=== PATIENT | female | born 1975 | race Caucasian/White ===

== ENCOUNTER 2016-08-04 16:14 | Emergency (ER) | payer OTHER ==
[2016-08-04] MEDS ORDERED: Zofran 4 MG/2 ML VIAL IV ONE (16:39)
[2016-08-04] MEDS ORDERED: Sodium Chloride 0.9% 1000 ML 1,000 ML IV STA (16:39)
[2016-08-04] MEDS ORDERED: NORCO 5/325 MG PO ONE (16:43)
--- NOTE | 2016-08-04 16:49 | ERPHSYRPT ---
- History of Present Illness Time Seen by Provider: 08/04/16 16:29 Source: patient Exam Limitations: no limitations Patient Subjective Stated Complaint: APPROX 0800 WHEN PT AWOKE SHE STATES SHE FELT VERY DIZZY AFTER STANDING AND STRETCHING. PT ALSO COMPLAINS OF NECK AND LEFT EAR PAIN. PT SAYS IT FEELS LIKE THE ROOM IS SPINNING THAT SHE FEELS OFF BALANCE AND NAUSEATED. Triage Nursing Assessment: PT IS AOX3, PUPILS ARE PERRL, AMBULATORY TO COT WITH NO DIFFICULTIES, RESPS ARE EASY AND NON LABORED. RADIAL PULSES ARE STRONG AND EQUAL. Physician History: Is a 41-year-old white female arrives with complaint of vertigo worse when she turns her head feels dizzy has pain in her left ear pain in her neck symptoms since 8:00 this morning when she woke up. She also states she feels nauseous. She has no chest pain no abdominal pain no vomiting no diarrhea no fevers. Patient does state that she has pain medications prescribed to her chronically but she does not take these. Past medical history includes migraines peripheral neuropathy degenerative disc disease menstrual problems depression bipolar schizoaffective disorder. Past surgical history includes appendectomy tubal ligation back surgery urine ablation Timing/Duration: today (8 AM today) Severity: mild Modifying Factors: Improves With: movement (worse with movement) Associated Symptoms: nausea, other (pain left ear pain neck posteriorly), No vomiting, No abdominal pain, No shortness of breath, No heartburn, No diaphoresis, No cough, No chills, No chest pain, No fever, No headaches, No loss of appetite, No malaise, No rash, No syncope, No seizure, No weakness Allergies/Adverse Reactions: No Known Drug Allergies Allergy (Verified 08/04/16 16:23) Home Medications: Topiramate 100 mg [Topamax 100 MG] 400 mg PO BID 03/31/13 [History] Bupropion HCl [Wellbutrin Xl] 450 mg PO DAILY 08/24/15 [History] Hydrocodone/APAP 10/325 mg [[place] 10/325 MG Tablet] 1 tab PO Q6H PRN PRN 05/02/16 [History] Clonazepam 0.5 mg [Klonopin 0.5 MG] 0.5 mg PO UD 08/04/16 [History] Oxcarbazepine 300 mg [Trileptal 300 MG Tablet] 600 mg PO DAILY 08/04/16 [ History] Hx Tetanus, Diphtheria Vaccination/Date Given: No Hx Influenza Vaccination/Date Given: Yes Hx Pneumococcal Vaccination/Date Given: No Immunizations Up to Date: Yes - Review of Systems Constitutional: No Fever, No Chills Eyes: No Symptoms, No Discharge, No Eye Pain, No Eye Redness, No Itchy, No Photophobia, No Tearing, No Vision Changes, No Double Vision Ears, Nose, & Throat: Ear Pain (left ear pain), No Ear Discharge, No Hearing Changes, No Tinnitus, No Nose Pain, No Nose Congestion, No Nose Discharge, No Sinus Drainage, No Epistaxis, No Mouth Pain, No Mouth Swelling, No Loose Teeth, No Throat Pain, No Throat Swelling, No Hoarse, No Painful Swallowing, No Snoring , No Stridor Respiratory: No Cough, No Dyspnea Cardiac: No Chest Pain, No Edema, No Syncope Abdominal/Gastrointestinal: No Abdominal Pain, No Nausea, No Vomiting, No Diarrhea Genitourinary Symptoms: No Dysuria Musculoskeletal: Neck Pain (patient states she has some pain posterior neck today), No Back Pain Skin: No Rash Neurological: Dizziness, Vertigo, No Focal Weakness, No Gait Changes, No Headache, No Irritability, No Lethargy, No Paralysis, No Parasthesia, No Seizure , No Sensory Changes, No Speech Changes, No Tics, No Tremors Psychological: No Symptoms Endocrine: No Symptoms All Other Systems: Reviewed and Negative - Past Medical History Pertinent Past Medical History: No Neurological History: Migraines, Peripheral Neuropathy ENT History: No Pertinent History Cardiac History: No Pertinent History Respiratory History: No Pertinent History Endocrine Medical History: No Pertinent History Musculoskeletal History: Degenerative Disk Disease GI Medical History: No Pertinent History History: No Pertinent History Psycho-Social History: Depression Female Reproductive Disorders: Menstrual Problems Other Medical History: HISTORY OF SURGERY ON THE LOW BACK FOR DDD; BIPOLAR, SCHIZOAFFECTIVE DISORDER, MULTIPLE PERSONALITY DISORDER - Past Surgical History Past Surgical History: Yes Neuro Surgical History: No Pertinent History Cardiac: No Pertinent History Respiratory: No Pertinent History Gastrointestinal: Appendectomy Genitourinary: No Pertinent History Musculoskeletal: Orthopedic Surgery Female Surgical History: Tubal Ligation Other Surgical History: back surgery - Social History Smoking Status: Current every day smoker How long have you smoked: 02/28 PPD Exposure to second hand smoke: Yes Drug Use: none Patient Lives Alone: No - Female History Hx Last Menstrual Period: ABLATION - Nursing Vital Signs Nursing Vital Signs: Initial Vital Signs Temperature 98.1 F Temperature Source Oral Pulse Rate 49 Respiratory Rate 16 Blood Pressure [] 118/72 Pain Intensity 4 - Physical Exam General Appearance: no apparent distress, alert, other (well-developed well- nourished white female she does not appear to be in distress) Eye Exam: PERRL/EOMI, eyes nml inspection Ears, Nose, Throat Exam: pharynx normal, moist mucous membranes, dry mucous membranes, TM abnormal (L) (left TM mildly erythematous), No TM abnormal (R) Neck Exam: normal inspection, non-tender, supple, full range of motion, other ( no demonstratable neck tenderness) Respiratory Exam: normal breath sounds, lungs clear, No respiratory distress Cardiovascular Exam: regular rate/rhythm, normal heart sounds, normal peripheral pulses Gastrointestinal/Abdomen Exam: soft, normal bowel sounds, No tenderness, No mass Back Exam: normal inspection, normal range of motion, No CVA tenderness, No vertebral tenderness Extremity Exam: normal inspection, normal range of motion, pelvis stable Neurologic Exam: alert, oriented x 3, ancient art curator II-XII nml as tested, normal mood/ affect, nml cerebellar function, nml station & gait, sensation nml, other ( patient alert, oriented 3, cranial nerves II through XII intact, speech normal no facial droop philosophy lecturer equal 5 over 5 finger to nose within normal limits GCS equals 15 sensation intact to all extremities), No motor deficits, No sensory deficit, No disoriented, No confusion, No uncooperative, No intoxicated appearance, No depressed mood/affect, No motor weakness, No facial droop, No slurred speech, No abnormal cerebellar tests, No abnormal ancient art curator II-XII Skin Exam: normal color, warm, dry, No rash SpO2 Interpretation: normal (100%) SpO2: 100 Oxygen Delivery: Room Air - Course Nursing assessment & vital signs reviewed: Yes EKG Interpreted by Me: RATE (54 bpm), Sinus Kimo, NORMAL AXIS, Other (EKG: Sinus bradycardia, 54 bpm, normal axis, no acute ST or T wave changes, essentially normal EKG) - CT Exams Head CT Interpretation: Tele-radiologist Report, Other (normal head CT) Ordered Tests: Active Orders 24 hr Category Date Time Status Accucheck STAT Care 08/04/16 16:39 Active EKG-ER Only STAT Care 08/04/16 16:39 Active IV Insertion STAT Care 08/04/16 16:39 Active Orthostatic Vital Signs STAT Care 08/04/16 16:39 Active HEAD WITHOUT CONTRAST [CT] Stat Exams 08/04/16 16:40 Taken CBC W DIFF Stat Lab 08/04/16 16:59 Completed CMP Stat Lab 08/04/16 16:59 Completed HCG QUALITATIVE,SERUM Stat Lab 08/04/16 16:59 Completed UA W/RFX UR CULTURE Stat Lab 08/04/16 16:42 Completed Medication Summary Discontinued Medications Generic Name Dose Route Start Last Admin Trade Name Wu PRN Reason Stop Dose Admin Hydrocodone Bitart/Acetaminophen 2 tab 08/04/16 16:43 08/04/16 17:24 [place] 5/325 Mg PO 08/04/16 16:44 2 tab STAT ONE Administration Hydrocodone Bitart/Acetaminophen Confirm 08/04/16 17:12 [place] 5/325 Mg Administered 08/04/16 17:13 Dose 2 tab .ROUTE .STK-MED ONE Aspirin 162 mg 08/04/16 17:55 08/04/16 18:02 Baby Aspirin 81 Mg Chew PO 08/04/16 17:56 162 mg STAT ONE Administration Aspirin Confirm 08/04/16 18:00 Baby Aspirin 81 Mg Chew Administered 08/04/16 18:01 Dose 162 mg .ROUTE .STK-MED ONE Sodium Chloride 1,000 mls @ 999 mls/hr 08/04/16 16:39 08/04/16 17:23 Sodium Chloride 0.9% 1000 Ml IV 08/04/16 17:39 999 mls/hr .Q1H1M STA Administration Sodium Chloride Confirm 08/04/16 17:12 Sodium Chloride 0.9% 1000 Ml Administered 08/04/16 17:13 Dose 1,000 mls @ ud .ROUTE .STK-MED ONE Meclizine HCl 12.5 mg 08/04/16 17:32 08/04/16 17:35 Antivert 25 Mg PO 08/04/16 17:33 12.5 mg STAT ONE Administration Meclizine HCl Confirm 08/04/16 17:35 Antivert 25 Mg Administered 08/04/16 17:36 Dose 25 mg .ROUTE .STK-MED ONE Ondansetron HCl 4 mg 08/04/16 16:39 08/04/16 17:24 Zofran 4 Mg/2 Ml Vial IV 08/04/16 16:40 4 mg STAT ONE Administration Ondansetron HCl Confirm 08/04/16 17:11 Zofran 4 Mg/2 Ml Vial Administered 08/04/16 17:12 Dose 4 mg .ROUTE .STK-MED ONE Lab/Rad Data: Laboratory Result Diagrams 08/04/16 16:59 08/04/16 16:59 Laboratory Results 08/04/16 08/04/16 08/04/16 Range/Units 16:59 16:59 16:59 WBC 4.9 (4.0-10.5) K/mm3 RBC 3.96 L (4.1-5.4) M/mm3 Hgb 12.8 (12.0-16.0) gm/dl Hct 38.5 (35-47) % MCV 97.2 (78-100) fl MCH 32.3 H (26-32) pg MCHC 33.2 (32-36) g/dl RDW 12.3 (11.5-14.0) % Plt Count 175 (150-450) K/mm3 MPV 10.9 H (6-9.5) fl Gran % 55.1 (36.0-66.0) % Lymphocytes % 35.2 (24.0-44.0) % Monocytes % 8.3 (0.0-12.0) % Eosinophils % 1.0 (0.00-5.0) % Basophils % 0.4 (0.0-0.4) % Basophils # 0.02 (0-0.4) Sodium 141 (136-145) mEq/L Potassium 3.7 (3.5-5.1) mEq/L Chloride 109 H (98-107) mEq/L Carbon Dioxide 23.1 (21-32) mEq/L Anion Gap 12.2 (5-15) MEQ/L BUN 13 (9-20) mg/dL Creatinine 1.25 (0.55-1.30) mg/dl Estimated GFR 50 ML/MIN Glucose 93 (70-110) MG/DL Calcium 8.8 (8.5-10.1) mg/dL Total Bilirubin 0.30 (0.2-1.0) mg/dL AST 7 L (15-37) U/L ALT 12 (12-78) U/L Alkaline Phosphatase 38 L (46-116) U/L Serum Total Protein 7.2 (6.4-8.2) gm/dL Albumin 3.7 (3.4-5.0) g/dL Serum , Qual NEGATIVE (Negative) Ur Collection Type Urine Color (YELLOW) Urine Appearance (CLEAR) Urine pH (5-6) Ur Specific [place] (1.005-1.025) Urine Protein (Negative) Urine Glucose (UA) (NEGATIVE) mg/dL Urine Ketones (NEGATIVE) Urine Nitrite (NEGATIVE) Urine Bilirubin (NEGATIVE) Urine Urobilinogen (0-1) mg/dL Urine WBC (Auto) (NEGATIVE) Urine RBC (Auto) (0-5) Wes/ul Specimen Received 08/04/16 Range/Units 16:42 WBC (4.0-10.5) K/mm3 RBC (4.1-5.4) M/mm3 Hgb (12.0-16.0) gm/dl Hct (35-47) % MCV (78-100) fl MCH (26-32) pg MCHC (32-36) g/dl RDW (11.5-14.0) % Plt Count (150-450) K/mm3 MPV (6-9.5) fl Gran % (36.0-66.0) % Lymphocytes % (24.0-44.0) % Monocytes % (0.0-12.0) % Eosinophils % (0.00-5.0) % Basophils % (0.0-0.4) % Basophils # (0-0.4) Sodium (136-145) mEq/L Potassium (3.5-5.1) mEq/L Chloride (98-107) mEq/L Carbon Dioxide (21-32) mEq/L Anion Gap (5-15) MEQ/L BUN (9-20) mg/dL Creatinine (0.55-1.30) mg/dl Estimated GFR ML/MIN Glucose (70-110) MG/DL Calcium (8.5-10.1) mg/dL Total Bilirubin (0.2-1.0) mg/dL AST (15-37) U/L ALT (12-78) U/L Alkaline Phosphatase (46-116) U/L Serum Total Protein (6.4-8.2) gm/dL Albumin (3.4-5.0) g/dL Serum , Qual (Negative) Ur Collection Type CLEAN CATCH Urine Color YELLOW (YELLOW) Urine Appearance CLOUDY (CLEAR) Urine pH 7.5 (5-6) Ur Specific [place] 1.020 (1.005-1.025) Urine Protein NEGATIVE (Negative) Urine Glucose (UA) NEGATIVE (NEGATIVE) mg/dL Urine Ketones NEGATIVE (NEGATIVE) Urine Nitrite NEGATIVE (NEGATIVE) Urine Bilirubin NEGATIVE (NEGATIVE) Urine Urobilinogen 0.2 (0-1) mg/dL Urine WBC (Auto) NEGATIVE (NEGATIVE) Urine RBC (Auto) NEGATIVE (0-5) Wes/ul Specimen Received 08/04/16 1730 - Progress Progress: improved Progress Note: 08/04/16 16:51 41-year-old white female she arrives with complaint of vertigo since today she states that she has some left ear pain and states that she has some posterior neck pain in the base of her neck however this is not demonstratable on physical exam and she is moving her head around when she talks without any difficulty she has a completely normal neurological examination however she does state that she feels dizzy and and does have of vertigo this is worse with movement Patient further states that she has pain in her left ear she apparently has chronic a prescription for [place] 10/325 which she states she doesn't take and she has not taken this. I Will go ahead and worked patient up for her dizziness including head CT EKG CBC CMP, orthostatic vital signs will give patient IV normal saline. I had offered patient Toradol for pain she states she does not want that she states she prefer something mild so I will go ahead and give the patient [place] for her pain. 08/04/16 17:50 Patient given IV normal saline also given [place]. Will give patient aspirin [address] EKG CBC CMP UA are all normal. Neurologic examination is normal. Will plan to send patient home diagnosis vertigo, left otitis media. Will place patient on Antivert 12.5 mg orally every 6 hours as needed for vertigo,. Will place patient on Zithromax Z-Logan as directed, Patient to take aspirin 162 mg orally tomorrow Patient to follow-up with her family doctor on Saturday she is to call for an appointment - Departure Time of Disposition: 17:51 Departure Disposition: Home Clinical Impression: Vertigo, Dizziness Left otitis media Qualifiers: Otitis media type: unspecified Chronicity: unspecified Qualified Code(s): H66.92 - Otitis media, unspecified, left ear Condition: Fair Critical Care Time: No Referrals: VENANCIO KEBEDE MD [Primary Care Provider] - Instructions: Vertigo Additional Instructions: Return home. Plenty of fluids. Antivert 12.5 mg orally every 6 hours as needed for dizziness. Aspirin 162 mg orally tomorrow. Zithromax JENNIE as directed. Follow-up with Dr. Kebede call Saturday for an appointment. Return for acute distress or for severe symptoms. Prescriptions: Meclizine HCl 25 mg [Antivert 25 mg] 12.5 mg PO Q6H PRN PRN #20 tablet PRN Reason: vertigo Azithromycin 250 mg [Zithromax 250 MG TABLET] 0 mg PO ZPACK #6 tablet
[2016-08-04 17:05] LABS: BASOPHIL % 0.4 % (0.0-0.4); Granulocytes % 55.1 % (36.0-66.0); Lymphocytes % 35.2 % (24.0-44.0); Mean Cell Volume 97.2 fl (78-100); Mean Corpuscular Hemoglobin 32.3 pg (26-32); Mean Platelet Volume 10.9 fl (6-9.5); Monocytes % 8.3 % (0.0-12.0); Platelet Count 175 K/mm3 (150-450); Red Blood Count 3.96 M/mm3 (4.1-5.4); Red Cell Distribution Width 12.3 % (11.5-14.0); White Blood Count 4.9 K/mm3 (4.0-10.5)
[2016-08-04] MEDS ORDERED: Zofran 4 MG/2 ML VIAL ONE (17:11)
[2016-08-04] MEDS ORDERED: Sodium Chloride 0.9% 1000 ML 1,000 ML ONE (17:12)
[2016-08-04] MEDS ORDERED: NORCO 5/325 MG ONE (17:12)
[2016-08-04 17:24] LABS: ALBUMIN 3.7 g/dL (3.4-5.0); ANION GAP 12.2 MEQ/L (5-15); BILIRUBIN,TOTAL 0.3 mg/dL (0.2-1.0); Carbon Dioxide 23.1 mEq/L (21-32); Potassium 3.7 mEq/L (3.5-5.1); Total Protein 7.2 gm/dL (6.4-8.2)
[2016-08-04] MEDS ORDERED: ANTIVERT 25 MG PO ONE (17:32)
[2016-08-04] MEDS ORDERED: ANTIVERT 25 MG ONE (17:35)
[2016-08-04 17:41] LABS: ADD URINE CULTURE? NO (NO); COMPLETE URINE MICROSCOPIC? NO; Collection Type CLEAN CATCH; Ph 7.5 (5-6)
[2016-08-04 17:51] VITALS: O2SAT 100
[2016-08-04] MEDS ORDERED: BABY ASPIRIN 81 MG CHEW PO ONE (17:55)
[2016-08-04] MEDS ORDERED: BABY ASPIRIN 81 MG CHEW ONE (18:00)
[2016-08-04 18:40] VITALS: BP 118/72; PULSE 49
--- NOTE | 2016-08-04 23:02 | XRAY ---
Indication: Sudden onset dizziness. No known injury. Frequent migraines. Multiple contiguous axial images obtained through the head without contrast. Comparison: None Normal appearing brain parenchyma, ventricles, and bony calvarium. Visualized paranasal sinuses and mastoid air cells are clear. Impression: Normal CT head without contrast exam. Comment: Preliminary interpretation was made by [facility]. No discrepancy. CTDI 70.00
== END 2016-08-04 18:52 | disposition home or self-care (01) ==
LOC: ED 16:14
DX: H66.92 Otitis media, unspecified, left ear (principal)
CPT/HCPCS: 36000; 36415; 70450; 80053; 81002; 82962; 84703; 85025; 93005; 96360; 96374; 99284; J2405; A9270-GY

== ENCOUNTER 2019-07-24 18:40 | Emergency (ER) | payer OTHER ==
[2019-07-24] MEDS ORDERED: TORAdol 30 mg Injection IM ONE (19:02)
[2019-07-24] MEDS ORDERED: TORAdol 30 mg Injection ONE (19:06)
--- NOTE | 2019-07-24 19:08 | ERPHSYRPT ---
- History of Present Illness Time Seen by Provider: 07/24/19 18:51 Source: patient Exam Limitations: no limitations Patient Subjective Stated Complaint: Right ankle pain Triage Nursing Assessment: Patient brought back to ED via w/c and transferred self to bed. Patient A+O X3. Patient's skin pink, warm and dry. Patient states she was stepping down her porch and missed the last step. Patient complains of right ankle pain 7/10 when bearing weight intermittent sharp pain. Swelling noted to right ankle. Pulses noted. Physician History: 44 yo wf rolled R ankle while stepping off curb. Pt denies other/previous injury. Pain 7 on scale when weight bearing. Method of Injury: twisted Occurred: hours ago (2) Quality: intermittent Severity of Pain-Max: moderate Severity of Pain-Current: mild Lower Extremities Pain: ankle: right Modifying Factors: Improves With: movement Associated Symptoms: popping sensation Allergies/Adverse Reactions: No Known Drug Allergies Allergy (Verified 07/24/19 18:48) Home Medications: Topiramate 100 mg [Topamax 100 MG] 400 mg PO BID 03/31/13 [History] Hx Tetanus, Diphtheria Vaccination/Date Given: No Hx Influenza Vaccination/Date Given: Yes Hx Pneumococcal Vaccination/Date Given: No Immunizations Up to Date: Yes Travel Risk - International Travel Have you traveled outside of the country in past 3 weeks: No Have you or anyone close to you been diagnosed with or: No Do your reside in a community with a known COVID-19 case?: Yes If Yes where:: [facility] - Coronavirus Screening Has patient experienced Coronavirus symptoms: No - Review of Systems Constitutional: No Symptoms Eyes: No Symptoms Ears, Nose, & Throat: No Symptoms Respiratory: No Symptoms Cardiac: No Symptoms Abdominal/Gastrointestinal: No Symptoms Genitourinary Symptoms: No Symptoms Skin: No Symptoms Neurological: No Symptoms Psychological: No Symptoms Endocrine: No Symptoms Hematologic/Lymphatic: No Symptoms Immunological/Allergic: No Symptoms - Past Medical History Pertinent Past Medical History: Yes Neurological History: Migraines, Peripheral Neuropathy ENT History: No Pertinent History Cardiac History: No Pertinent History Respiratory History: No Pertinent History Endocrine Medical History: No Pertinent History Musculoskeletal History: Degenerative Disk Disease GI Medical History: No Pertinent History History: No Pertinent History Psycho-Social History: Depression Female Reproductive Disorders: Menstrual Problems Other Medical History: HISTORY OF SURGERY ON THE LOW BACK FOR DDD; BIPOLAR, SCHIZOAFFECTIVE DISORDER, MULTIPLE PERSONALITY DISORDER - Past Surgical History Past Surgical History: Yes Neuro Surgical History: No Pertinent History Cardiac: No Pertinent History Respiratory: No Pertinent History Gastrointestinal: Appendectomy Genitourinary: No Pertinent History Musculoskeletal: Orthopedic Surgery Female Surgical History: Tubal Ligation Other Surgical History: back surgery - Social History Smoking Status: Current every day smoker How long have you smoked: 1/4 PPD Exposure to second hand smoke: Yes Drug Use: none Patient Lives Alone: No - Female History Hx Last Menstrual Period: 3 weeks ago Hx Now: No - Nursing Vital Signs Nursing Vital Signs: Initial Vital Signs Temperature 98.4 F 07/24/19 18:52 Pulse Rate 55 L 07/24/19 18:52 Respiratory Rate 18 07/24/19 18:52 Blood Pressure 142/92 07/24/19 18:52 O2 Sat by Pulse Oximetry 100 07/24/19 18:52 Pain Scale Pain Intensity 8 - Physical Exam General Appearance: no apparent distress Eyes, Ears, Nose, Throat Exam: normal ENT inspection, TMs normal, pharynx normal Neck Exam: normal inspection, non-tender, supple, full range of motion Cardiovascular/Respiratory Exam: normal breath sounds, regular rate/rhythm, heart sounds normal Gastrointestinal/Abdominal Exam: non-tender, soft Back Exam: normal inspection Hips Exam: bilateral: non-tender, normal inspection Legs Exam: bilateral leg: non-tender, normal inspection Knees Exam: bilateral knee: non-tender, normal inspection Ankle Exam: right ankle: limited range of motion, pain, soft tissue tenderness, swelling Foot Exam: bilateral foot: non-tender, normal inspection, normal range of motion , no evidence of injury Neuro/Tendon Exam: normal sensation, normal motor functions, normal tendon functions, responds to pain Mental Status Exam: alert, oriented x 3, cooperative Skin Exam: normal color, warm, dry SpO2 Interpretation: normal SpO2: 100 O2 Delivery: Room Air - Course Nursing assessment & vital signs reviewed: Yes - Radiology Exams Ankle X-ray Interpretation: Interpreted by me, No Fracture Ordered Tests: Active Orders 24 hr Category Date Time Status Crutches STAT Care 07/24/19 19:32 Active Splint STAT Care 07/24/19 19:27 Active ANKLE (3 VIEWS) Stat Exams 07/24/19 19:21 Taken Medication Summary Discontinued Medications Generic Name Dose Route Start Last Admin Trade Name Freq PRN Reason Stop Dose Admin Ketorolac Tromethamine 60 mg 07/24/19 19:02 07/24/19 19:09 Toradol 30 Mg Injection IM 07/24/19 19:03 60 mg STAT ONE Administration Ketorolac Tromethamine Confirm 07/24/19 19:06 Toradol 30 Mg Injection Administered 07/24/19 19:07 Dose 60 mg .ROUTE .STK-MED ONE - Progress Progress: improved Progress Note: 07/24/19 19:29 60mg IM toradol/Air splint per nurse/NVI 07/24/19 19:33 Pt initially turned down crutches, but later asked for them. Crutch training per nurse. Counseled pt/family regarding: diagnosis, rad results - Departure Departure Disposition: Home Clinical Impression: Right ankle sprain Condition: Stable Critical Care Time: No Referrals: VENANCIO KEBEDE MD [Primary Care Provider] - Additional Instructions: Air Splint for 5-7 days Ice for 12-24 hours Toradol as needed for pain Follow up with your family MD for continued pain Weight bearing as tolerated Prescriptions: Ketorolac Tromethamine [Toradol] 10 mg PO Q8HPRN PRN #10 tablet PRN Reason: Pain
[2019-07-24 19:45] VITALS: O2SAT 99
[2019-07-24 19:55] VITALS: BP 121/65; PULSE 60
--- NOTE | 2019-07-24 23:04 | XRAY ---
Indication: Lateral pain following injury. Comparison: None 3 view right ankle demonstrates tiny heel spurs and small anterior talus spur. No other bony, articular, or soft tissue abnormalities.
== END 2019-07-24 20:03 | disposition home or self-care (01) ==
LOC: ED 18:40
DX: S93.401A Sprain of unspecified ligament of right ankle, initial encounter (principal); M51.36 Other intervertebral disc degeneration, lumbar region; F25.0 Schizoaffective disorder, bipolar type; Z72.0 Tobacco use; G62.9 Polyneuropathy, unspecified; M25.571 Pain in right ankle and joints of right foot; X50.1XXA Overexertion from prolonged static or awkward postures, initial encounter; Y93.89 Activity, other specified; Y92.9 Unspecified place or not applicable
CPT/HCPCS: 73610; 96372; 99284; J1885

== ENCOUNTER 2020-05-03 07:18 | Inpatient (IN) | payer OTHER ==
[2020-05-03] MEDS ORDERED: CEFAZOLIN 2 GM-D5W BAG** 2 GM/50 ML ML IV ONE (07:29)
[2020-05-03] MEDS ORDERED: Lactated Ringers 1,000 ML IV ONE ×2 (07:29→07:41)
[2020-05-03] MEDS ORDERED: CEFAZOLIN 2 GM-D5W BAG** 2 GM/50 ML ML IV SCH (07:30)
[2020-05-03] MEDS ORDERED: Lactated Ringers 1,000 ML IV SCH (07:30)
[2020-05-03 08:12] LABS: Hematocrit 40.8 % (35-47); Hemoglobin 13.2 gm/dl (12.0-16.0); Mean Cell Volume 97.8 fl (78-100); Mean Corpuscular Hemoglobin 31.7 pg (26-32); Mean Corpuscular Hgb Concent. 32.4 g/dl (32-36); Mean Platelet Volume 11.2 fl (7.5-11.0); Platelet Count 178 K/mm3 (150-450); Red Blood Count 4.17 M/mm3 (4.1-5.4); Red Cell Distribution Width 12.6 % (11.5-14.0); White Blood Count 4.8 K/mm3 (4.0-10.5)
[2020-05-03 08:31] LABS: ALKALINE PHOSPHATASE 46 U/L (38-126); ANION GAP 11.3 MEQ/L (5-15); BLOOD UREA NITROGEN 10 mg/dL (7-17); CHLORIDE 106 mmol/L (98-107); Calcium 8.9 mg/dL (8.4-10.2); Carbon Dioxide 24 mmol/L (22-30); Creatinine 1 0.88 mg/dL (0.52-1.04); EST GLOMERULAR FILTRATION RATE > 60.0 ML/MIN; Glucose 107 mg/dL (74-106); Potassium 3.7 mmol/L (3.5-5.1); SGOT/AST 18 U/L (14-36); SGPT/ALT 15 U/L (0-35); SODIUM 137 mmol/L (137-145); Total Protein 6.9 g/dL (6.3-8.2)
[2020-05-03 08:46] LABS: INFLUENZA A NEGATIVE (NEGATIVE); INFLUENZA B NEGATIVE (NEGATIVE); RESPIRATORY SYNCTIAL VIRUS NEGATIVE (Negative)
[2020-05-03 09:02] LABS: ABO TYPING B; Antibody Screen NEGATIVE (NEGATIVE); RH TYPING NEGATIVE
[2020-05-03] MEDS ORDERED: Zofran 4 MG/2 ML VIAL ONE (09:51)
[2020-05-03] MEDS ORDERED: TORAdol 30 mg Injection ONE (09:51)
[2020-05-03] MEDS ORDERED: BRIDION 200MG/2ML IV ONE (09:51)
[2020-05-03] MEDS ORDERED: Zemuron 100 MG/10 ML ONE (09:51)
[2020-05-03] MEDS ORDERED: Decadron 4 MG INJ ONE ×2 (09:51→12:02)
[2020-05-03] MEDS ORDERED: Xylocaine-Mpf 2% 5 Ml Vial ONE (09:51)
[2020-05-03] MEDS ORDERED: DIPRIVAN 200 MG/20 ML IV ONE (09:51)
[2020-05-03] MEDS ORDERED: SUBLIMAZE 250 MCG/5 ML ONE (09:52)
[2020-05-03] MEDS ORDERED: Versed 2 MG/2 ML Injection ONE (09:52)
[2020-05-03] MEDS ORDERED: Ketamine HCl 50 MG/ML ONE (11:01)
[2020-05-03] MEDS ORDERED: Naropin 0.5% 30 ML VIAL ONE (12:02)
[2020-05-03] MEDS ORDERED: Hydromorphone 1 mg/ml Injection ONE (12:45)
[2020-05-03 12:56] LABS: Appearance SLIGHTLY CLOUDY (CLEAR); Bilirubin NEGATIVE (NEGATIVE); Blood SMALL Ery/ul (0-5); Epithelial Cells RARE /HPF (FEW); Glucose NEGATIVE (NEGATIVE); Ketones SMALL (NEGATIVE); Leukocyte Esterase SMALL (NEGATIVE); Mucus SLIGHT /HPF (NEGATIVE); Nitrite NEGATIVE (NEGATIVE); Protein,Urine Dip NEGATIVE (Negative); Specific Gravity 1.013 (1.005-1.025); Urobilinogen NEGATIVE mg/dL (0-1); WBC 0-2 /HPF (0-5)
[2020-05-03] MEDS ORDERED: MORPHINE SULFATE 10 MG/ML ONE (12:57)
[2020-05-03] MEDS ORDERED: SUBLIMAZE 100 MCG/2 ML ONE (12:57)
[2020-05-03 12:59] LABS: Bacteria NONE SEEN /HPF (NEGATIVE)
[2020-05-03] MEDS ORDERED: DILAUDID 1 MG/1ML PCA IV PRN (14:08)
[2020-05-03] MEDS ORDERED: Zofran 4 MG/2 ML VIAL IV PRN (14:14)
[2020-05-03] MEDS ORDERED: TORAdol 30 mg Injection IV PRN (14:18)
[2020-05-03] MEDS: CEFAZOLIN 2 GM-D5W BAG** 2 GM/50 ML ML IV SCH ×2 (15:16→22:02)
[2020-05-03] MEDS: Mylicon 80MG PO SCH ×2 (15:16→22:03)
[2020-05-03] MEDS: Reglan 10 MG/2 ML IV SCH ×2 (15:16→22:04)
[2020-05-03 18:22] LABS: Hematocrit 38.1 % (35-47); Hemoglobin 12.1 gm/dl (12.0-16.0); Mean Corpuscular Hemoglobin 31.4 pg (26-32); Mean Corpuscular Hgb Concent. 31.8 g/dl (32-36); Mean Platelet Volume 11.2 fl (7.5-11.0); Platelet Count 164 K/mm3 (150-450); Red Blood Count 3.85 M/mm3 (4.1-5.4); Red Cell Distribution Width 12.7 % (11.5-14.0); White Blood Count 12.1 K/mm3 (4.0-10.5)
[2020-05-03] MEDS: Lactated Ringers 1,000 ML IV SCH (20:51)
[2020-05-03] MEDS ORDERED: TOPIRAMATE PO SCH (22:00)
[2020-05-03] MEDS: Colace 100 MG PO SCH (22:03)
[2020-05-03] MEDS: TOPIRAMATE PO SCH (22:08)
[2020-05-04 05:07] LABS: Hematocrit 34.5 % (35-47); Hemoglobin 10.9 gm/dl (12.0-16.0); Mean Cell Volume 98.6 fl (78-100); Mean Corpuscular Hemoglobin 31.1 pg (26-32); Mean Corpuscular Hgb Concent. 31.6 g/dl (32-36); Mean Platelet Volume 11.3 fl (7.5-11.0); Platelet Count 156 K/mm3 (150-450); Red Cell Distribution Width 12.6 % (11.5-14.0)
[2020-05-04] MEDS: Lactated Ringers 1,000 ML IV SCH (05:17)
[2020-05-04 05:38] LABS: ALBUMIN 3.3 g/dL (3.5-5.0); ALKALINE PHOSPHATASE 38 U/L (38-126); ANION GAP 9.2 MEQ/L (5-15); BLOOD UREA NITROGEN 6 mg/dL (7-17); CHLORIDE 106 mmol/L (98-107); Calcium 8.7 mg/dL (8.4-10.2); Carbon Dioxide 22 mmol/L (22-30); Creatinine 1 0.74 mg/dL (0.52-1.04); EST GLOMERULAR FILTRATION RATE > 60.0 ML/MIN; Glucose 140 mg/dL (74-106); Potassium 3.9 mmol/L (3.5-5.1); SGOT/AST 17 U/L (14-36); SGPT/ALT 14 U/L (0-35); SODIUM 134 mmol/L (137-145)
[2020-05-04] MEDS: Mylicon 80MG PO SCH (06:26)
[2020-05-04] MEDS: Reglan 10 MG/2 ML IV SCH (06:26)
[2020-05-04] MEDS ORDERED: ENOXAPARIN SODIUM SQ SCH (08:00)
[2020-05-04] MEDS ORDERED: MOTRIN 600 MG PO PRN (08:07)
[2020-05-04] MEDS: Colace 100 MG PO SCH (09:12)
[2020-05-04] MEDS: NORCO 5/325 MG PO PRN ×2 (09:14→13:14)
[2020-05-04] MEDS: TOPIRAMATE PO SCH (09:54)
--- NOTE | 2020-05-04 10:08 | OP ---
SURGERY DATE/TIME: 05/03/2020 1052 PREOPERATIVE DIAGNOSES: 1) Abnormal uterine bleeding. 2) Severe cervical dysplasia. POSTOPERATIVE DIAGNOSES: 1) Abnormal uterine bleeding. 2) Severe cervical dysplasia. PROCEDURES: 1) Total abdominal hysterectomy. 2) Bilateral salpingectomy. SURGEON: Edgardo Morton D.O. BAIT PAINTER: Brianna Lopez, surgical services manager. ANESTHESIA: General. ESTIMATED BLOOD LOSS: 200 cc. COMPLICATIONS: None. INDICATIONS: The risks, benefits, indications and alternatives of the procedure were reviewed with the patient prior to the procedure. The patient understood the risk of infection, bleeding, bowel injury, bladder injury, ureteral injury, incisional hernia, pelvic infection and thromboembolic disorder associated with the surgery however desires to have the surgery as a possible means to alleviate her current medical condition. DESCRIPTION OF PROCEDURE AND FINDINGS: At this point the patient is taken to the operating room, placed in supine position, given general sedation, prepared and draped in the normal sterile fashion. A Pfannenstiel incision was made approximately 2 cm above the symphysis pubis and extended sharply through the rectus fascia. The fascia was then incised bilaterally with curved Naidu scissors and the muscles of the anterior abdominal wall were in the midline by sharp and blunt dissection. The peritoneum was then grasped between two pickups elevated and entered sharply with Metzenbaum scissors. The pelvis is then examined and noted to have an 8 weeks size uterus. An O'Beltran-O'Girard retractor was placed into the incision and the bowel packed away with moist laparotomy sponges. Two Radha clamps were placed on the cornua and used for retraction. From this point the left utero-ovarian ligament was clamped, coagulated, cut and taken down to the round ligament towards the uterine vessel on its side where the anterior lip of the broad ligament was then incised along the bladder reflection to the midline. The same procedure was performed on the right side where the right utero-ovarian ligament was clamped, coagulated and cut and taken down to the round ligament towards the uterine vasculature where the anterior lip of the broad ligament was incised along the bladder reflection to the midline on its side. The bladder was then gently dissected off of the lower uterine segment from the cervix with a sponge stick. From this point the uterine arteries were skeletonized bilaterally, clamped with Luis clamp, transected and suture ligated with 0 Vicryl suture. Again, hemostasis was assured. The utero-sacral ligaments were clamped on both sides, transected and suture ligated in similar fashion. From this point the uterus was then amputated with cautery. The vaginal cuff angles were closed with a figure-of-8 stitch of 0 Vicryl and were transfixed to the ipsilateral Cardinal and uterosacral ligaments. The remainder of the vaginal cuff was closed with a series of interrupted 0 Vicryl figure-of-8 sutures. Hemostasis was assured. From this point the pelvis was then irrigated copiously with warm, normal saline. All lap, sponge and instruments were then removed from the patient's abdomen. The muscles were closed in interrupted fashion with 2-0 chromic suture. The fascia was closed with running 0 Vicryl suture. The subcutaneous layer was closed with 3-0 Vicryl suture and the skin was closed with absorbable eliecer called INSORB. Prior to closing, the bilateral tubes were removed using the LigaSure where it was clamped, coagulated and cut along the mesosalpinx on both sides. Sponge, lap and instruments counts were correct x2. The patient was then taken to the recovery room in stable condition. Both ovaries appeared to be within normal limits and were not removed during the procedure.
[2020-05-04 12:15] VITALS: BP 115/64; PULSE 55; O2SAT 99
--- NOTE | 2020-05-04 12:59 | PCM.DS ---
Discharge Summary Date of Admission: 05/03/20 07:18 Admitting Physician: RACHEL WALKER DO Primary Care Provider: VENANCIO KEBEDE Allergies Allergies No Known Drug Allergies Allergy (Verified 05/03/20 08:39) Hospital Summary - Hospital Course Hospital Course: pt admitted on may 03 for undergoing total abdominal hysterectomy b/l salpingectomy for abnormal uterine bleeding and high grade dysplasia. pt underwent procedure without complication and now stable for discharge. pt able to ambulate and tolerate diet and was advised to fu in office in 1 wk for incision check. all questions answered to her satisfaction. - Vitals & Intake/Output Vital Signs: Vital Signs Temperature 98.1 F 05/04/20 12:00 Pulse Rate 55 L 05/04/20 12:00 Respiratory Rate 18 05/04/20 12:00 Blood Pressure 115/64 05/04/20 12:00 O2 Sat by Pulse Oximetry 99 05/04/20 12:00 Intake & Output: Intake & Output 05/02/20 05/03/20 05/04/20 05/05/20 11:59 11:59 11:59 11:59 Intake Total 3259 Output Total 2400 Balance 859 Weight 93.6 kg 96 kg - Lab Result Diagrams: 05/04/20 04:52 05/04/20 04:52 Lab Results-Last 24 Hrs: Lab Results-Last 24 Hours 05/03/20 05/03/20 05/04/20 Range/Units 12:36 18:15 04:52 WBC 12.1 H 12.0 H (4.0-10.5) K/mm3 RBC 3.85 L 3.50 L (4.1-5.4) M/mm3 Hgb 12.1 10.9 L (12.0-16.0) gm/dl Hct 38.1 34.5 L (35-47) % MCV 99.0 98.6 (78-100) fl MCH 31.4 31.1 (26-32) pg MCHC 31.8 L 31.6 L (32-36) g/dl RDW 12.7 12.6 (11.5-14.0) % Plt Count 164 156 (150-450) K/mm3 MPV 11.2 H 11.3 H (7.5-11.0) fl Sodium (137-145) mmol/L Potassium (3.5-5.1) mmol/L Chloride (98-107) mmol/L Carbon Dioxide (22-30) mmol/L Anion Gap (5-15) MEQ/L BUN (7-17) mg/dL Creatinine (0.52-1.04) mg/dL Estimated GFR ML/MIN Glucose (74-106) mg/dL Calcium (8.4-10.2) mg/dL Total Bilirubin (0.2-1.3) mg/dL AST (14-36) U/L ALT (0-35) U/L Alkaline Phosphatase (38-126) U/L Serum Total Protein (6.3-8.2) g/dL Albumin (3.5-5.0) g/dL Urine Color YELLOW (YELLOW) Urine Appearance SLIGHTLY CLOUDY (CLEAR) Urine pH 7.0 (5-6) Ur Specific [place] 1.013 (1.005-1.025) Urine Protein NEGATIVE (Negative) Urine Ketones SMALL (NEGATIVE) Urine Blood SMALL (0-5) Wes/ul Urine Nitrite NEGATIVE (NEGATIVE) Urine Bilirubin NEGATIVE (NEGATIVE) Urine Urobilinogen NEGATIVE (0-1) mg/dL Ur Leukocyte Esterase SMALL (NEGATIVE) Urine WBC (Auto) 0-2 (0-5) /HPF Urine RBC (Auto) NONE (0-2) /HPF U Epithel Cells (Auto) RARE (FEW) /HPF Urine Bacteria (Auto) NONE SEEN (NEGATIVE) /HPF Urine Mucus (Auto) SLIGHT (NEGATIVE) /HPF Urine Glucose NEGATIVE (NEGATIVE) mg/dL 05/04/20 Range/Units 04:52 WBC (4.0-10.5) K/mm3 RBC (4.1-5.4) M/mm3 Hgb (12.0-16.0) gm/dl Hct (35-47) % MCV (78-100) fl MCH (26-32) pg MCHC (32-36) g/dl RDW (11.5-14.0) % Plt Count (150-450) K/mm3 MPV (7.5-11.0) fl Sodium 134 L (137-145) mmol/L Potassium 3.9 (3.5-5.1) mmol/L Chloride 106 (98-107) mmol/L Carbon Dioxide 22 (22-30) mmol/L Anion Gap 9.2 (5-15) MEQ/L BUN 6 L (7-17) mg/dL Creatinine 0.74 (0.52-1.04) mg/dL Estimated GFR > 60.0 ML/MIN Glucose 140 H (74-106) mg/dL Calcium 8.7 (8.4-10.2) mg/dL Total Bilirubin 0.60 (0.2-1.3) mg/dL AST 17 (14-36) U/L ALT 14 (0-35) U/L Alkaline Phosphatase 38 (38-126) U/L Serum Total Protein 6.0 L (6.3-8.2) g/dL Albumin 3.3 L (3.5-5.0) g/dL Urine Color (YELLOW) Urine Appearance (CLEAR) Urine pH (5-6) Ur Specific [place] (1.005-1.025) Urine Protein (Negative) Urine Ketones (NEGATIVE) Urine Blood (0-5) Wes/ul Urine Nitrite (NEGATIVE) Urine Bilirubin (NEGATIVE) Urine Urobilinogen (0-1) mg/dL Ur Leukocyte Esterase (NEGATIVE) Urine WBC (Auto) (0-5) /HPF Urine RBC (Auto) (0-2) /HPF U Epithel Cells (Auto) (FEW) /HPF Urine Bacteria (Auto) (NEGATIVE) /HPF Urine Mucus (Auto) (NEGATIVE) /HPF Urine Glucose (NEGATIVE) mg/dL - Procedures and Test Procedures and Tests throughout Hospitalization: Therapy Orders & Screens 05/03/20 13:43 Incentive Spirometry UD Comment: Diagnosis: Severe Cervical Dysplasia. Abnormal uterine bleeding Discharge Exam Wound Assessment: Skin/Wound Assessment Wound/Incision Assessment Start: 05/03/20 14:13 Text: Status: Active Freq: Q6H Protocol: Document 05/04/20 08:00 JERED (Rec: 05/04/20 08:45 JERED TN [id number]) Wound/Incision Assessment Lower Anterior Abdomen Wound Assessment Shift Assessment Wound Type Incision Wound Stage Non Pressure Wound Dressing Status Changed Drainage Amount Minimal Drainage Description Sanguineous Drainage Odor None/Absent General Appearance Well Approximated Primary Dressing ISLAND DRESSING Wound Photo Photo Taken No - Discharge Discharge Date: 05/04/20 Disposition: Home, Self-Care Condition: Stable Prescriptions: New Hydrocodone/Acetaminophen [Hydrocodone-Acetamin 5-325 mg ] 1 tab PO Q6HPRN PRN 5 Days #20 tablet MDD 4 PRN Reason: Pain Doxycycline Hyclate 100 mg [Vibramycin 100 MG] 100 mg PO BID #6 tab Continue Topiramate 100 mg [Topamax 100 MG] 200 mg PO BID Follow up with: RACHEL WALKER DO [ACTIVE STAFF] - 05/11/20 3:15 pm Forms: Patient Portal Information
== END 2020-05-04 14:45 | disposition home or self-care (01) | DRG 743 ==
LOC: MED SURG 07:18 → EDSTATUS 13:04
PROVIDERS: ADMIT Obstetrics & Gynecology; ATTEND Obstetrics & Gynecology
PROC: 0UT90ZZ Resection of Uterus, Open Approach (ICD-10-PCS; principal; 2020-05-03)
PROC: 0UT70ZZ Resection of Bilateral Fallopian Tubes, Open Approach (ICD-10-PCS; 2020-05-03)
DX: N93.9 Abnormal uterine and vaginal bleeding, unspecified (principal); D06.9 Carcinoma in situ of cervix, unspecified
CPT/HCPCS: 0241U; 36415; 64488; 80053; 81001; 84703; 85027; 86850; 86900; 86901; 87086; J0690; J1100; J1170; J1650; J1885; J2250; J2270; J2405; J2704; J2795; J3010; A9270-GY

== ENCOUNTER 2020-06-02 08:40 | Emergency (ER) | payer OTHER ==
[2020-06-02 08:51] VITALS: O2SAT 99
[2020-06-02] MEDS ORDERED: DECADRON 10MG INJ. PO ONE (08:51)
[2020-06-02] MEDS ORDERED: TORAdol 30 mg Injection IM ONE (08:52)
--- NOTE | 2020-06-02 09:00 | ERPHSYRPT ---
- History of Present Illness Time Seen by Provider: 06/02/20 08:55 Source: patient Patient Subjective Stated Complaint: pt here for pain to left side of neck and in to shoulder for 2 days after working in yard 3 days ago Triage Nursing Assessment: pt alert, walked in, face mask in place, resp easy, skin w/d/p, no abrasions or swelling noted Physician History: Patient is a 45-year-old female presents to our ED with complaints of left upper trapezius pain. Pain started yesterday. Patient relates the pain to gardening 2 days ago. Patient states the pain started yesterday however was tolerable. This morning she awoke and the pain was much worse. Pain described as an ache that is well localized. No radiation. Pain worse with palpation and movement of her left upper extremity. Pain improved with rest. No trauma. No fever. No extremity numbness tingling or weakness. Symptoms are mild to moderate in intensity. No associated nausea or vomiting. No dizziness. No headache. Patient voices no other complaints or concerns at this time. Timing/Duration: day(s) Severity: moderate Modifying Factors: Improves With: movement Associated Symptoms: denies symptoms Allergies/Adverse Reactions: No Known Drug Allergies Allergy (Verified 05/03/20 08:39) Home Medications: Topiramate 100 mg [Topamax 100 MG] 200 mg PO BID 03/31/13 [History] Hx Tetanus, Diphtheria Vaccination/Date Given: No Hx Influenza Vaccination/Date Given: Yes Hx Pneumococcal Vaccination/Date Given: No Travel Risk - International Travel Have you traveled outside of the country in past 3 weeks: No - Coronavirus Screening Are you exhibiting any of the following symptoms?: No Close contact with a COVID-19 positive Pt in past 14-21 Days: No - Vaccine Status Have you recieved a Covid-19 vaccination: No - Review of Systems Constitutional: No Symptoms, No Fever, No Chills Eyes: No Symptoms Ears, Nose, & Throat: No Symptoms Respiratory: No Symptoms, No Cough, No Dyspnea Cardiac: No Symptoms, No Chest Pain, No Edema, No Syncope Abdominal/Gastrointestinal: No Symptoms, No Abdominal Pain, No Nausea, No Vomiting, No Diarrhea Genitourinary Symptoms: No Symptoms, No Dysuria Musculoskeletal: No Symptoms, No Back Pain, No Neck Pain Skin: No Symptoms, No Rash Neurological: No Symptoms, No Dizziness, No Focal Weakness, No Sensory Changes Psychological: No Symptoms Endocrine: No Symptoms Hematologic/Lymphatic: No Symptoms Immunological/Allergic: No Symptoms All Other Systems: Reviewed and Negative - Past Medical History Pertinent Past Medical History: Yes Neurological History: Migraines, Peripheral Neuropathy ENT History: No Pertinent History Cardiac History: No Pertinent History Respiratory History: No Pertinent History Endocrine Medical History: No Pertinent History Musculoskeletal History: Degenerative Disk Disease GI Medical History: No Pertinent History History: No Pertinent History Psycho-Social History: Anxiety, Depression Female Reproductive Disorders: Menstrual Problems Other Medical History: HISTORY OF SURGERY ON THE LOW BACK FOR DDD; BIPOLAR, SCHIZOAFFECTIVE DISORDER, MULTIPLE PERSONALITY DISORDER - Past Surgical History Past Surgical History: Yes Neuro Surgical History: No Pertinent History Cardiac: No Pertinent History Respiratory: No Pertinent History Gastrointestinal: Appendectomy, Cholecystectomy Genitourinary: No Pertinent History Musculoskeletal: Orthopedic Surgery Female Surgical History: Dilation & Curettage, Tubal Ligation Other Surgical History: back surgery - Social History Smoking Status: Current every day smoker How long have you smoked: 30 yr Exposure to second hand smoke: Yes Drug Use: none Patient Lives Alone: No - Female History Hx Last Menstrual Period: hyster Hx Now: No - Nursing Vital Signs Nursing Vital Signs: Initial Vital Signs Temperature 97.2 F 06/02/20 08:43 Pulse Rate 68 06/02/20 08:43 Respiratory Rate 18 06/02/20 08:43 Blood Pressure 138/65 06/02/20 08:43 O2 Sat by Pulse Oximetry 99 06/02/20 08:43 Pain Scale Pain Intensity 9 - Physical Exam SpO2: 99 - Course Nursing assessment & vital signs reviewed: Yes - Radiology Exams Clavicle X-ray Interpretation: Teleradiologist Report (3 view cervical spine demonstrates normal bones, articulation and soft tissues.) Ordered Tests: Active Orders 24 hr Category Date Time Status CERVICAL SPINE (2 OR 3 VIEW) Stat Exams 06/02/20 08:51 Completed Medication Summary Discontinued Medications Generic Name Dose Route Start Last Admin Trade Name Freq PRN Reason Stop Dose Admin Dexamethasone Sodium Phosphate 10 mg 06/02/20 08:51 06/02/20 09:04 Decadron 10mg Inj. PO 06/02/20 08:52 10 mg STAT ONE Administration Dexamethasone Sodium Phosphate Confirm 06/02/20 09:01 Decadron 10mg Inj. Administered 06/02/20 09:02 Dose 10 mg .ROUTE .STK-MED ONE Ketorolac Tromethamine 30 mg 06/02/20 08:52 06/02/20 09:04 Toradol 30 Mg Injection IM 06/02/20 08:53 30 mg STAT ONE Administration Ketorolac Tromethamine Confirm 06/02/20 09:01 Toradol 30 Mg Injection Administered 06/02/20 09:02 Dose 30 mg .ROUTE .STK-MED ONE - Progress Progress: improved Progress Note: Patient reassessed. Pain improved. It appears that patient is experiencing a left upper trapezius muscle strain likely from repetitive motion from gardening 2 days ago. X-rays are negative for acute pathology. Patient received a dose of Toradol and Decadron. A left upper extremity shoulder sling provided to unload the left upper trapezius muscle. Patient understand that she should rest for the next several days until pain improves. Patient agrees to follow-up with her primary care doctor within 48 hours for reevaluation. Patient neurovascularly intact distally post splint application and prior to discharge. Patient voices no other complaints concerns at this time. Will discharge at this time. A prescription for Toradol was forwarded to the patient's pharmacy. 06/02/20 09:43 06/02/20 09:44 Counseled pt/family regarding: diagnosis, need for follow-up, rad results - Departure Departure Disposition: Home Clinical Impression: Repetitive motion disorder, Musculoskeletal disorder involving upper trapezius muscle, Muscle strain Condition: Stable Critical Care Time: No Referrals: VENANCIO KEBEDE MD [Primary Care Provider] - Additional Instructions: Discharge/Care Plan JEROME WAKEFIELD was seen on 06/02/20 in the Emergency Room. The patient was counseled regarding Diagnosis,Lab results, Imaging studies, need for follow up and when to return to the Emergency Room. Prescriptions given: Discharge Note I have spoken with the patient and/or caregivers. I have explained the patient's condition, diagnosis and treatment plan based on the information available to me at this time. I have answered the patient's and/or caregiver's questions and addressed any concerns. The patient and/or caregivers have as good understanding of the patient's diagnosis, condition and treatment plan as can be expected at this point. The vital signs have been stable. The patient's condition is stable and appropriate for discharge from the emergency department. The patient will pursue further outpatient evaluation with the primary care physician or other designated or consulting physician as outlined in the discharge instructions. The patient and/or caregivers are agreeable to this plan of care and follow-up instructions have been explained in detail. The patient and/or caregivers have received these instruction. The patient/and or caregivers are aware that any significant change in condition or worsening of symptoms should prompt an immediate return to this or the closest emergency department or call 911. Prescriptions: Ketorolac Tromethamine [Toradol] 10 mg PO TID 5 Days #15 tablet
[2020-06-02] MEDS ORDERED: DECADRON 10MG INJ. ONE (09:01)
[2020-06-02] MEDS ORDERED: TORAdol 30 mg Injection ONE (09:01)
--- NOTE | 2020-06-02 09:21 | XRAY ---
Indication: Left neck pain. No known injury. Comparison: None 3 views cervical spine demonstrates normal bones, articulation, and soft tissues.
[2020-06-02 09:45] VITALS: BP 119/69; PULSE 48
== END 2020-06-02 09:54 | disposition home or self-care (01) ==
LOC: ED 08:40
DX: G25.89 Other specified extrapyramidal and movement disorders (principal); S46.812A Strain of other muscles, fascia and tendons at shoulder and upper arm level, left arm, initial encounter; X50.3XXA Overexertion from repetitive movements, initial encounter; Y93.H2 Activity, gardening and landscaping; Y92.096 Garden or yard of other non-institutional residence as the place of occurrence of the external cause
CPT/HCPCS: 72040; 96372; 99284; J1100; J1885

== ENCOUNTER 2020-08-25 17:20 | Emergency (ER) | payer OTHER ==
[2020-08-25] MEDS ORDERED: Sodium Chloride 0.9% 1000 ML 1,000 ML IV STA (17:53)
[2020-08-25] MEDS ORDERED: Zofran 4 MG/2 ML VIAL IV ONE (17:53)
--- NOTE | 2020-08-25 17:58 | ERPHSYRPT ---
- History of Present Illness Historian: patient Exam Limitations: no limitations Patient Subjective Stated Complaint: patient states she has not been feeling well since saturday morning with what she thought was the stomach flu. States she "cried her self to sleep and for 6 hours yesterday because the pain was so bad". States the "pain came back with a vengance this morning" and became worse at 1 700 which made her SOB Triage Nursing Assessment: Patient presents to ED with SOB. Patient is tearful and anxious at this time. O2 saturation 100% on room air, lungs clear, reporting pain above her umbilicus 10/04. Patient states pain came after eating jello. Timing/Duration: day(s) (2), intermittent, sudden, worse Activities at Onset: rest Quality: sharpness Abdominal Pain Onset Location: epigastric Pain Radiation: back Severity of Pain-Max: moderate Severity of Pain-Current: mild Modifying Factors: Worsens With: eating Associated Symptoms: nausea Previous symptoms: no prior history Hx Tetanus, Diphtheria Vaccination/Date Given: No Hx Influenza Vaccination/Date Given: Yes Hx Pneumococcal Vaccination/Date Given: No Immunizations Up to Date: Yes <GATITO CAMP - Last Filed: 08/25/20 17:58> <DUSTIN JONES - Last Filed: 08/25/20 20:05> - History of Present Illness Time Seen by Provider: 08/25/20 17:27 Physician History: 45 years old healthy female presented to the ER with 2 days history of epigastric pain intermittently, moderate to severe intensity, sharp in nature, aggravated after eating and prior to arrival she had a severe pain in the epigastrium with radiation to the back with associated shortness of breath. S hortness of breath is pretty much resolved now. She still having minimal pain. Reports nausea but no vomiting. Does have history of appendectomy and cholecystectomy. Denies any history of CAD, PE/DVT. (GATITO CAMP) Allergies/Adverse Reactions: No Known Drug Allergies Allergy (Verified 08/25/20 17:33) Home Medications: Topiramate 100 mg [Topamax 100 MG] 200 mg PO BID 03/31/13 [History] Travel Risk - International Travel Have you traveled outside of the country in past 3 weeks: No - Coronavirus Screening Are you exhibiting any of the following symptoms?: No Close contact with a COVID-19 positive Pt in past 14-21 Days: No - Vaccine Status Have you recieved a Covid-19 vaccination: No <URIAH CAMPMIR - Last Filed: 08/25/20 17:58> - Review of Systems Constitutional: No Symptoms Eyes: No Symptoms Ears, Nose, & Throat: No Symptoms Respiratory: Dyspnea Cardiac: No Symptoms Abdominal/Gastrointestinal: Abdominal Pain, Nausea Genitourinary Symptoms: No Symptoms Musculoskeletal: No Symptoms Skin: No Symptoms Neurological: No Symptoms Psychological: No Symptoms Endocrine: No Symptoms Hematologic/Lymphatic: No Symptoms Immunological/Allergic: No Symptoms <URIAH CAMPMIR - Last Filed: 08/25/20 17:58> - Past Medical History Pertinent Past Medical History: Yes Neurological History: Migraines, Peripheral Neuropathy ENT History: No Pertinent History Cardiac History: No Pertinent History Respiratory History: No Pertinent History Endocrine Medical History: No Pertinent History Musculoskeletal History: Degenerative Disk Disease GI Medical History: No Pertinent History History: No Pertinent History Psycho-Social History: Anxiety, Depression Female Reproductive Disorders: Menstrual Problems Other Medical History: HISTORY OF SURGERY ON THE LOW BACK FOR DDD; BIPOLAR, SCHIZOAFFECTIVE DISORDER, MULTIPLE PERSONALITY DISORDER - Past Surgical History Past Surgical History: Yes Neuro Surgical History: No Pertinent History Cardiac: No Pertinent History Respiratory: No Pertinent History Gastrointestinal: Appendectomy, Cholecystectomy Genitourinary: No Pertinent History Musculoskeletal: Orthopedic Surgery Female Surgical History: Dilation & Curettage, Tubal Ligation Other Surgical History: back surgery, hysterectomy - Social History Smoking Status: Current every day smoker How long have you smoked: 30 yr Exposure to second hand smoke: Yes Drug Use: none Patient Lives Alone: No - Female History Hx Now: No (hysterectomy) <MARGIE CAMPR - Last Filed: 08/25/20 17:58> - Physical Exam General Appearance: no apparent distress, alert Eye Exam: PERRL/EOMI, eyes nml inspection Ears, Nose, Throat Exam: normal ENT inspection, TMs normal, pharynx normal Neck Exam: normal inspection, non-tender, supple, full range of motion Respiratory Exam: normal breath sounds, lungs clear, No chest tenderness Cardiovascular Exam: regular rate/rhythm, normal heart sounds Gastrointestinal/Abdomen Exam: soft, normal bowel sounds, tenderness (Epigastric), No distention, No guarding Back Exam: normal inspection, normal range of motion Extremity Exam: normal inspection, normal range of motion Neurologic Exam: alert, oriented x 3, cooperative Skin Exam: normal color SpO2 Interpretation: normal SpO2: 100 O2 Delivery: Room Air <GATITO CAMP - Last Filed: 08/25/20 17:58> - Nursing Vital Signs Nursing Vital Signs: Initial Vital Signs Pulse Rate 84 08/25/20 17:21 Respiratory Rate 18 08/25/20 17:21 Blood Pressure 149/113 08/25/20 17:21 O2 Sat by Pulse Oximetry 100 08/25/20 17:21 Pain Scale Pain Intensity 7 - Course EKG Interpreted by Me: RATE (55), Sinus Kimo, NORMAL AXIS, NORMAL INTERVALS, Other (T wave inversion inferiorly lead) <GATITO CAMP - Last Filed: 08/25/20 17:58> - CT Exams Chest CT Interpretation: Negative Abdomen/Pelvis CT Interpretation: Negative (Stable L4-L5 fusion.) <DUSTIN JONES - Last Filed: 08/25/20 20:05> Ordered Tests: Active Orders 24 hr Category Date Time Status EKG-ER Only STAT Care 08/25/20 17:53 Active IV Insertion STAT Care 08/25/20 17:53 Active NPO (ED) STAT Care 08/25/20 17:53 Active ABDOMEN AND PELVIS W CONTRAST [CT] Stat Exams 08/25/20 18:43 Taken CHEST WITH CONTRAST [CT] Stat Exams 08/25/20 18:43 Taken AMYLASE Stat Lab 08/25/20 18:15 Completed CBC W DIFF Stat Lab 08/25/20 18:15 Completed CMP Stat Lab 08/25/20 18:15 Completed D-DIMER QUANTITATIVE Stat Lab 08/25/20 18:15 Completed LIPASE Stat Lab 08/25/20 18:15 Completed TROPONIN Q3H Lab 08/25/20 18:15 Completed TROPONIN Q3H Lab 08/25/20 21:00 Ordered TROPONIN Q3H Lab 08/26/20 00:00 Ordered TROPONIN Q3H Lab 08/26/20 03:00 Ordered TROPONIN Q3H Lab 08/26/20 06:00 Ordered UA W/RFX UR CULTURE Stat Lab 08/25/20 19:52 Completed Medication Summary Discontinued Medications Generic Name Dose Route Start Last Admin Trade Name Freq PRN Reason Stop Dose Admin Sodium Chloride 1,000 mls @ 999 mls/hr 08/25/20 17:53 08/25/20 18:25 Sodium Chloride 0.9% 1000 Ml IV 08/25/20 18:53 999 mls/hr .Q1H1M STA Administration Sodium Chloride Confirm 08/25/20 18:22 Sodium Chloride 0.9% 1000 Ml Administered 08/25/20 18:23 Dose 1,000 mls @ ud .ROUTE .STK-MED ONE Ondansetron HCl 4 mg 08/25/20 17:53 08/25/20 18:24 Zofran 4 Mg/2 Ml Vial IV 08/25/20 17:54 4 mg STAT ONE Administration Ondansetron HCl Confirm 08/25/20 18:22 Zofran 4 Mg/2 Ml Vial Administered 08/25/20 18:23 Dose 4 mg .ROUTE .STK-MED ONE Lab/Rad Data: Laboratory Result Diagrams 08/25/20 18:15 08/25/20 18:15 Laboratory Results 08/25/20 08/25/20 08/25/20 Range/Units 19:52 18:15 18:15 WBC (4.0-10.5) K/mm3 RBC (4.1-5.4) M/mm3 Hgb (12.0-16.0) gm/dl Hct (35-47) % MCV (78-100) fl MCH (26-32) pg MCHC (32-36) g/dl RDW (11.5-14.0) % Plt Count (150-450) K/mm3 MPV (7.5-11.0) fl Gran % (36.0-66.0) % Eos # (Auto) (0-0.5) Absolute Lymphs (auto) (1.0-4.6) Absolute Monos (auto) (0.0-1.3) Lymphocytes % (24.0-44.0) % Monocytes % (0.0-12.0) % Eosinophils % (0.00-5.0) % Basophils % (0.0-0.4) % Absolute Granulocytes (1.4-6.9) Basophils # (0-0.4) D-Dimer 531 H* (215-500) ng/mL Sodium (137-145) mmol/L Potassium (3.5-5.1) mmol/L Chloride (98-107) mmol/L Carbon Dioxide (22-30) mmol/L Anion Gap (5-15) MEQ/L BUN (7-17) mg/dL Creatinine (0.52-1.04) mg/dL Estimated GFR ML/MIN Glucose (74-106) mg/dL Calcium (8.4-10.2) mg/dL Total Bilirubin (0.2-1.3) mg/dL AST (14-36) U/L ALT (0-35) U/L Alkaline Phosphatase (38-126) U/L Troponin I < 0.012 (0.000-0.034) ng/mL Serum Total Protein (6.3-8.2) g/dL Albumin (3.5-5.0) g/dL Amylase (30-110) U/L Lipase (23-300) U/L Urine Color YELLOW (YELLOW) Urine Appearance CLEAR (CLEAR) Urine pH 6.0 (5-6) Ur Specific [place] 1.032 (1.005-1.025) Urine Protein NEGATIVE (Negative) Urine Ketones NEGATIVE (NEGATIVE) Urine Blood SMALL (0-5) Wes/ul Urine Nitrite NEGATIVE (NEGATIVE) Urine Bilirubin NEGATIVE (NEGATIVE) Urine Urobilinogen NEGATIVE (0-1) mg/dL Ur Leukocyte Esterase NEGATIVE (NEGATIVE) Urine WBC (Auto) NONE (0-5) /HPF Urine RBC (Auto) NONE (0-2) /HPF U Epithel Cells (Auto) RARE (FEW) /HPF Urine Bacteria (Auto) NONE (NEGATIVE) /HPF Urine Mucus (Auto) SLIGHT (NEGATIVE) /HPF Urine Culture Reflexed NO (NO) Urine Glucose NEGATIVE (NEGATIVE) mg/dL 08/25/20 08/25/20 Range/Units 18:15 18:15 WBC 7.2 (4.0-10.5) K/mm3 RBC 4.70 (4.1-5.4) M/mm3 Hgb 14.6 (12.0-16.0) gm/dl Hct 45.2 (35-47) % MCV 96.2 (78-100) fl MCH 31.1 (26-32) pg MCHC 32.3 (32-36) g/dl RDW 12.6 (11.5-14.0) % Plt Count 196 (150-450) K/mm3 MPV 11.1 H (7.5-11.0) fl Gran % 61.3 (36.0-66.0) % Eos # (Auto) 0.11 (0-0.5) Absolute Lymphs (auto) 2.12 (1.0-4.6) Absolute Monos (auto) 0.55 (0.0-1.3) Lymphocytes % 29.3 (24.0-44.0) % Monocytes % 7.6 (0.0-12.0) % Eosinophils % 1.5 (0.00-5.0) % Basophils % 0.3 (0.0-0.4) % Absolute Granulocytes 4.44 (1.4-6.9) Basophils # 0.02 (0-0.4) D-Dimer (215-500) ng/mL Sodium 139 (137-145) mmol/L Potassium 4.3 (3.5-5.1) mmol/L Chloride 105 (98-107) mmol/L Carbon Dioxide 25 (22-30) mmol/L Anion Gap 12.5 (5-15) MEQ/L BUN 9 (7-17) mg/dL Creatinine 0.92 (0.52-1.04) mg/dL Estimated GFR > 60.0 ML/MIN Glucose 103 (74-106) mg/dL Calcium 9.1 (8.4-10.2) mg/dL Total Bilirubin 0.50 (0.2-1.3) mg/dL AST 28 (14-36) U/L ALT 21 (0-35) U/L Alkaline Phosphatase 56 (38-126) U/L Troponin I (0.000-0.034) ng/mL Serum Total Protein 7.4 (6.3-8.2) g/dL Albumin 4.4 (3.5-5.0) g/dL Amylase 76 (30-110) U/L Lipase 208 (23-300) U/L Urine Color (YELLOW) Urine Appearance (CLEAR) Urine pH (5-6) Ur Specific [place] (1.005-1.025) Urine Protein (Negative) Urine Ketones (NEGATIVE) Urine Blood (0-5) Wes/ul Urine Nitrite (NEGATIVE) Urine Bilirubin (NEGATIVE) Urine Urobilinogen (0-1) mg/dL Ur Leukocyte Esterase (NEGATIVE) Urine WBC (Auto) (0-5) /HPF Urine RBC (Auto) (0-2) /HPF U Epithel Cells (Auto) (FEW) /HPF Urine Bacteria (Auto) (NEGATIVE) /HPF Urine Mucus (Auto) (NEGATIVE) /HPF Urine Culture Reflexed (NO) Urine Glucose (NEGATIVE) mg/dL - Progress Counseled pt/family regarding: lab results <GATITO CAMP - Last Filed: 08/25/20 17:58> <DUSTIN JONES - Last Filed: 08/25/20 20:05> - Progress Progress Note: 08/25/20 18:57 Offered symptomatic treatment with pain medication but refused. She is given Zofran and fluids. Work-up is pending, care is transferred to Dr. Jones at shift change for reevaluation and final disposition (GATITO CAMP) 08/25/20 19:18 Patient care transitioned to mt by Dr. Camp pending CTA chest/abd/pelvis. If normal, patient can be discharged home. 08/25/20 19:32 The patient was being brought back to her room from CT. She appeared to be in no obvious distress. 08/25/20 19:40 I reassessed the patient to find that she was in no obvious distress. She had some mild epigastric tenderness with no rebound tenderness, guarding, or rigidity. She was offered pain medication but declined. She's had a prior cholecystetomy. Symptoms sound GI related ? ulcer or gastritis. If imaging relatively benign, I'll d/c to f/u with PCP and start on protonix. She tells me she takes an Aleve gel cap for back pain. I recommended she stop this and start taking APAP instead. (DUSTIN JONES) <GATITO CAMP - Last Filed: 08/25/20 17:58> - Departure Departure Disposition: Home Critical Care Time: No <DUSTIN JONES - Last Filed: 08/25/20 20:05> - Departure Clinical Impression: Epigastric pain Condition: Stable Referrals: VENANCIO KEBEDE MD [Primary Care Provider] - Instructions: Dyspepsia Additional Instructions: Please avoid taking Aleve, ibuprofen, Mortin, or medications in the NSAID class. Please take Protonix daily and start taking acetaminophen as need for your back pain. You can purchase acetaminophen [id number]. Please take this medication as instructed in the medication bottle. Prescriptions: Pantoprazole 20 mg [Protonix 20MG Tablet] 20 mg PO DAILY #30 tab
[2020-08-25 18:18] LABS: Absolute Neutrophil Ct (ANC) 4.44 (1.4-6.9); BASOPHIL % 0.3 % (0.0-0.4); Basophil (Absolute #) 0.02 (0-0.4); Eosinophil % 1.5 % (0.00-5.0); Eosinophil (Absolute #) 0.11 (0-0.5); Hematocrit 45.2 % (35-47); Hemoglobin 14.6 gm/dl (12.0-16.0); Lymphocyte (Absolute #) 2.12 (1.0-4.6); Lymphocytes % 29.3 % (24.0-44.0); Mean Cell Volume 96.2 fl (78-100); Mean Corpuscular Hemoglobin 31.1 pg (26-32); Mean Corpuscular Hgb Concent. 32.3 g/dl (32-36); Mean Platelet Volume 11.1 fl (7.5-11.0); Monocyte (Absolute #) 0.55 (0.0-1.3); Monocytes % 7.6 % (0.0-12.0); Neutrophil % 61.3 % (36.0-66.0); Platelet Count 196 K/mm3 (150-450); Red Cell Distribution Width 12.6 % (11.5-14.0); White Blood Count 7.2 K/mm3 (4.0-10.5)
[2020-08-25] MEDS ORDERED: Sodium Chloride 0.9% 1000 ML 1,000 ML ONE (18:22)
[2020-08-25] MEDS ORDERED: Zofran 4 MG/2 ML VIAL ONE (18:22)
[2020-08-25 18:31] LABS: ALBUMIN 4.4 g/dL (3.5-5.0); ALKALINE PHOSPHATASE 56 U/L (38-126); AMYLASE 76 U/L (30-110); ANION GAP 12.5 MEQ/L (5-15); BLOOD UREA NITROGEN 9 mg/dL (7-17); CHLORIDE 105 mmol/L (98-107); Calcium 9.1 mg/dL (8.4-10.2); Carbon Dioxide 25 mmol/L (22-30); Creatinine 1 0.92 mg/dL (0.52-1.04); EST GLOMERULAR FILTRATION RATE > 60.0 ML/MIN; Glucose 103 mg/dL (74-106); LIPASE 208 U/L (23-300); Potassium 4.3 mmol/L (3.5-5.1); SGOT/AST 28 U/L (14-36); SGPT/ALT 21 U/L (0-35); SODIUM 139 mmol/L (137-145); Total Protein 7.4 g/dL (6.3-8.2)
[2020-08-25 20:01] LABS: Appearance CLEAR (CLEAR); Bilirubin NEGATIVE (NEGATIVE); Blood SMALL Ery/ul (0-5); Epithelial Cells RARE /HPF (FEW); Glucose NEGATIVE (NEGATIVE); Ketones NEGATIVE (NEGATIVE); Leukocyte Esterase NEGATIVE (NEGATIVE); Mucus SLIGHT /HPF (NEGATIVE); Nitrite NEGATIVE (NEGATIVE); Protein,Urine Dip NEGATIVE (Negative); Specific Gravity 1.032 (1.005-1.025); Urobilinogen NEGATIVE mg/dL (0-1)
[2020-08-25 20:27] VITALS: BP 110/70; PULSE 47; O2SAT 100
--- NOTE | 2020-08-26 08:51 | XRAY ---
Indication: Epigastric pain, short of breath, and elevated d-dimer. Multiple contiguous axial images obtained through the chest using 80 cc Isovue 370 contrast and PE protocol. Comparison: None There is good opacification of the pulmonary arteries to include the lobar and segmental branches. No pulmonary embolus. Heart is not enlarged. Aorta is normal in course and caliber. Small mediastinal and left hilar calcified nodes. No pathologic mediastinal/hilar lymphadenopathy. Lungs are inflated with small lingula calcified granuloma and minimal right lung dependent atelectasis. No suspicious pulmonary mass, infiltrate, or effusion. Bony thorax intact with minimal degenerative changes throughout the spine. CT abdomen/pelvis reported separately. Impression: 1. Negative pulmonary embolus. No acute cardiopulmonary abnormalities. 2. Incidental old granulomatous disease.
--- NOTE | 2020-08-26 08:55 | XRAY ---
Indication: Epigastric pain, short of breath, and elevated d-dimer. Multiple contiguous axial images obtained through the abdomen and pelvis using 80 cc Isovue 370 contrast. Comparison: May 12, 2020. CT chest reported separately. Noncontrasted stomach and bowel loops nonobstructed. Again appendectomy, cholecystectomy, and hysterectomy. No free fluid/air. Spleen remains enlarged measuring 13 cm. Remaining liver, pancreas, spleen, adrenal glands, kidneys, ureters, and bladder are unremarkable. Aorta normal in course and caliber. No AAA or pathologic retroperitoneal lymphadenopathy. Osseous structures intact again with L4-L5 laminectomy and fusion with intact spinal hardware and intervertebral spacer. Stable left paraspinal epidural stimulator device/leads. Impression: 1. Stable lumbar postsurgical changes and splenomegaly. 2. Remaining CT abdomen/pelvis with contrast exam is negative.
== END 2020-08-25 20:27 | disposition home or self-care (01) ==
LOC: ED 17:20
DX: R10.13 Epigastric pain (principal); R11.0 Nausea; R06.02 Shortness of breath; Z79.899 Other long term (current) drug therapy; F17.200 Nicotine dependence, unspecified, uncomplicated
CPT/HCPCS: 36000; 36415; 71260; 74177; 80053; 81001; 82150; 83690; 84484; 85025; 85379; 93005; 96360; 96374; 99284; J2405

== ENCOUNTER 2021-04-08 18:29 | Emergency (ER) | payer OTHER ==
[2021-04-08] MEDS ORDERED: Hydromorphone 1 mg/ml Injection IV ONE (18:31)
[2021-04-08] MEDS ORDERED: Norflex 60 MG/2 ML IV ONE (18:31)
[2021-04-08] MEDS ORDERED: Zofran 4 MG/2 ML VIAL IV ONE (18:31)
[2021-04-08] MEDS ORDERED: Zofran 4 MG/2 ML VIAL ONE (18:40)
[2021-04-08] MEDS ORDERED: Hydromorphone 1 mg/ml Injection ONE (18:40)
[2021-04-08] MEDS ORDERED: Norflex 60 MG/2 ML ONE (18:40)
--- NOTE | 2021-04-08 18:58 | ERPHSYRPT ---
- History of Present Illness Time Seen by Provider: 04/08/21 18:31 Source: patient, EMS Exam Limitations: no limitations Patient Subjective Stated Complaint: pt here for lower right back pain that radiates to right leg since saturday after lifting a 5 gallom bucket, seen romie on saturday and given rx Triage Nursing Assessment: pt arrived per ambulance alert, resp easy, face mask in place, skin w/d/p, Physician History: 46 years old female with a history of back pain in the past status post surgery long time ago presented in the ER with chief complaint of right lower back pain for the last 4-5 days sudden onset after she lifted a 5 pound bucket and felt a popping sound, sharp stabbing, some radiation to the right hip, aggravated with movements and better with being still. Denies any numbness tingling or weakness of lower extremities. No loss of bowel or bladder control. Timing/Duration: day(s) (4), constant, sudden, worse Method of Injury: lifting Quality: sharp, throbbing Back Pain Location: lumbar spine, paraspinous muscles Back Pain Radiation: buttocks Severity of Pain-Max: severe Severity of Pain-Current: severe Modifying Factors: Improves With: immobilization. Worsens With: movement Allergies/Adverse Reactions: No Known Drug Allergies Allergy (Verified 04/08/21 18:35) Home Medications: Topiramate 100 mg [Topamax 100 MG] 200 mg PO BID 03/31/13 [History] Naproxen 375 mg [Naprosyn 375 mg] 1 ea .ROUTE BID 04/08/21 [History] Hx Tetanus, Diphtheria Vaccination/Date Given: No Hx Influenza Vaccination/Date Given: No Hx Pneumococcal Vaccination/Date Given: No Immunizations Up to Date: Yes Travel Risk - International Travel Have you traveled outside of the country in past 3 weeks: No - Coronavirus Screening Are you exhibiting any of the following symptoms?: No Close contact with a COVID-19 positive Pt in past 14-21 Days: No - Vaccine Status Have you recieved a Covid-19 vaccination: No - Review of Systems Constitutional: No Symptoms Eyes: No Symptoms Ears, Nose, & Throat: No Symptoms Respiratory: No Symptoms Cardiac: No Symptoms Abdominal/Gastrointestinal: No Symptoms Genitourinary Symptoms: No Symptoms Musculoskeletal: Back Pain Skin: No Symptoms Neurological: No Symptoms Psychological: No Symptoms Endocrine: No Symptoms Hematologic/Lymphatic: No Symptoms - Past Medical History Pertinent Past Medical History: Yes Neurological History: Migraines, Peripheral Neuropathy ENT History: No Pertinent History Cardiac History: No Pertinent History Respiratory History: No Pertinent History Endocrine Medical History: No Pertinent History Musculoskeletal History: Degenerative Disk Disease GI Medical History: No Pertinent History History: No Pertinent History Psycho-Social History: Anxiety, Depression Female Reproductive Disorders: Menstrual Problems Other Medical History: HISTORY OF SURGERY ON THE LOW BACK FOR DDD; BIPOLAR, SCHIZOAFFECTIVE DISORDER, MULTIPLE PERSONALITY DISORDER - Past Surgical History Past Surgical History: Yes Neuro Surgical History: No Pertinent History Cardiac: No Pertinent History Respiratory: No Pertinent History Gastrointestinal: Appendectomy, Cholecystectomy Genitourinary: No Pertinent History Musculoskeletal: Orthopedic Surgery Female Surgical History: Hysterectomy, Dilation & Curettage, Tubal Ligation Other Surgical History: back surgery, hysterectomy - Social History Smoking Status: Current every day smoker How long have you smoked: 30 yr Exposure to second hand smoke: Yes Drug Use: none Patient Lives Alone: No - Female History Hx Last Menstrual Period: hyster Hx Now: (unkm) - Nursing Vital Signs Nursing Vital Signs: Initial Vital Signs Temperature 97.8 F 04/08/21 18:30 Pulse Rate 95 H 04/08/21 18:30 Respiratory Rate 18 04/08/21 18:30 Blood Pressure 135/69 04/08/21 18:30 O2 Sat by Pulse Oximetry 96 04/08/21 18:30 Pain Scale Pain Intensity [Back] 7 Pain Intensity 4 - Physical Exam General Appearance: no apparent distress Eye Exam: PERRL/EOMI Neck Exam: normal inspection, full range of motion Respiratory Exam: normal breath sounds, lungs clear Cardiovascular Exam: regular rate/rhythm, normal heart sounds Gastrointestinal Exam: soft, normal bowel sounds, No tenderness Back Exam: normal inspection, vertebral tenderness (Lumbar spinal and right paraspinal/sacroiliac area. Straight leg raising test positive at 30 degrees on the right.), No normal range of motion, No CVA tenderness Extremity Exam: normal inspection, pelvis stable Neurologic Exam: alert, oriented x 3, cooperative, case fitter II-XII nml as tested, normal mood/affect, sensation nml, No motor deficits Skin Exam: normal color SpO2 Interpretation: normal SpO2: 96 O2 Delivery: Room Air Ordered Tests: Active Orders 24 hr Category Date Time Status LUMBAR SPINE W/O [CT] Stat Exams 04/08/21 18:31 Completed Medication Summary Discontinued Medications Generic Name Dose Route Start Last Admin Trade Name Wu PRN Reason Stop Dose Admin Hydromorphone HCl 1 mg 04/08/21 18:31 04/08/21 18:42 Hydromorphone 1 Mg/1ml Inj 1 Mg/Ml Syringe IV 04/08/21 18:32 1 mg STAT ONE Administration Hydromorphone HCl Confirm 04/08/21 18:40 Hydromorphone 1 Mg/1ml Inj 1 Mg/Ml Syringe Administered 04/08/21 18:41 Dose 1 mg .ROUTE .STK-MED ONE Ondansetron HCl 4 mg 04/08/21 18:31 04/08/21 18:41 Ondansetron Hcl 4 Mg/2 Ml Vial IV 04/08/21 18:32 4 mg STAT ONE Administration Ondansetron HCl Confirm 04/08/21 18:40 Ondansetron Hcl 4 Mg/2 Ml Vial Administered 04/08/21 18:41 Dose 4 mg .ROUTE .STK-MED ONE Orphenadrine Citrate 60 mg 04/08/21 18:31 04/08/21 18:42 Orphenadrine Citrate 60 Mg/2 Ml Amp IV 04/08/21 18:32 60 mg STAT ONE Administration Orphenadrine Citrate Confirm 04/08/21 18:40 Orphenadrine Citrate 60 Mg/2 Ml Amp Administered 04/08/21 18:41 Dose 60 mg .ROUTE .STK-MED ONE - Progress Progress: improved, pain not gone completely, re-examined Progress Note: 04/08/21 20:28 She is given symptomatic treatment for pain, on reevaluation feeling much better. Negative neuro exam lower extremities. I have obtained CT lumbar spine which is negative for fracture or subluxation. I believe she has low back strain, recommended pain medication and muscle relaxant, outpatient spinal surgery follow-up. Discussed signs symptoms of worsening needing return to ER which she seems understanding. Stable for discharge. Counseled pt/family regarding: diagnosis, need for follow-up, rad results - Departure Clinical Impression: Acute low back pain Qualifiers: Back pain laterality: right Sciatica presence: with sciatica Sciatica laterality: sciatica of right side Qualified Code(s): M54.41 - Lumbago with sciatica, right side Condition: Stable Critical Care Time: No Referrals: VENANCIO KEBEDE MD [ACTIVE STAFF] - Follow up/PCP as directed (2 days for reevaluation) BRETT HOLLINGSWORTH MD [NON-STAFF PHY W/O PRIVILEGES] - Follow up/PCP as directed (Call in 2 days for reevaluation) Instructions: Low Back Pain (DC), Sciatica (DC) Additional Instructions: Take pain medications as needed. Follow-up with primary care/spinal surgery for reevaluation. Return to ER for intractable low back pain, numbness tingling weakness of lower extremities/loss of bowel control/perineal numbness etc. Prescriptions: Hydrocodone/Acetaminophen [Hydrocodone-Acetamin 5-325 mg] 1 tab PO Q6HPRN PRN 3 Days #12 tablet MDD 4 PRN Reason: Pain Methocarbamol 500 mg [Robaxin 500 MG] 500 mg PO QID 8 Days #30 tablet
--- NOTE | 2021-04-08 19:46 | XRAY ---
Indication: Pain following lifting heavy object 4 days ago. Multiple contiguous axial images obtained through the lumbar spine. Sagittal and coronal reformatted images obtained. Comparison: August 25, 2020. Again L4-L5 laminectomy with beam artifact from L4-L5 intervertebral spacer/bilateral posterior fusion hardware and paraspinal stimulator device/leads. No acute fracture, suspicious bony lesions, or spinal canal stenosis. Sagittal and coronal reformatted images demonstrates normal lumbar alignment with vertebral body heights/disc spaces maintained. No acute compression fracture or subluxation. Visualized noncontrasted soft tissues demonstrates nonobstructing left renal punctate calculus. Impression: 1. Stable L4-L5 laminectomy with posterior fusion and paraspinal stimulator device in situ. 2. Nonobstructing left renal punctate calculus. 3. Remaining CT lumbar spine is negative. Comment: Preliminary interpretation made by [facility]. No critical discrepancy.
[2021-04-08 19:53] VITALS: BP 105/57; PULSE 80
[2021-04-08 20:32] VITALS: O2SAT 96
== END 2021-04-08 20:48 | disposition home or self-care (01) ==
LOC: ED 18:29
DX: M54.41 Lumbago with sciatica, right side (principal); X50.0XXA Overexertion from strenuous movement or load, initial encounter; Z79.891 Long term (current) use of opiate analgesic; Z79.899 Other long term (current) drug therapy; Z72.0 Tobacco use
CPT/HCPCS: 72131; 96374; 96375; 99284; J1170; J2360; J2405

== ENCOUNTER 2022-10-09 09:01 | Emergency (ER) | payer OTHER ==
[2022-10-09] MEDS ORDERED: TORAdol 30 mg Injection IM ONE (10:05)
[2022-10-09] MEDS ORDERED: DECADRON 10MG INJ. IM ONE (10:06)
[2022-10-09] MEDS ORDERED: TORAdol 30 mg Injection ONE (10:10)
[2022-10-09] MEDS ORDERED: DECADRON 10MG INJ. ONE (10:10)
--- NOTE | 2022-10-09 10:26 | ERPHSYRPT ---
- History of Present Illness Time Seen by Provider: 10/09/22 10:20 Source: patient Exam Limitations: no limitations Patient Subjective Stated Complaint: Pt states "I woke up with this horrible back pain" Triage Nursing Assessment: PT presented alert and oriented X 3, skin pwd. Pt ambulates with a slow stiff gait. PT winces and moans when she moves. Physician History: Patient is a 47-year-old female presents to our ED with acute on chronic back pain. Patient has had back surgery in the past. Patient states she awoke this morning with severe back pain. No trauma. No fever. No recent back procedures. No saddle anesthesia. No systemic manifestations. No nausea vomiting or diaphoresis. Symptoms are mild to moderate in intensity. No specific worsening or improving factors. Daughter at bedside. They voiced no other complaints or concerns at this time. Portions of this note were created with voice recognition technology. There may be grammatical, spelling, punctuation or sound alike errors Timing/Duration: today Method of Injury: unknown Quality: dull, other (Pain localized no radiation) Back Pain Location: lumbar spine Severity of Pain-Current: moderate Modifying Factors: Improves With: movement Associated Symptoms: denies symptoms Previous symptoms: same symptoms as today Allergies/Adverse Reactions: No Known Drug Allergies Allergy (Verified 04/19/21 13:42) Hx Tetanus, Diphtheria Vaccination/Date Given: No Hx Influenza Vaccination/Date Given: No Hx Pneumococcal Vaccination/Date Given: No Travel Risk - International Travel Have you traveled outside of the country in past 3 weeks: No - Coronavirus Screening Are you exhibiting any of the following symptoms?: No Close contact with a COVID-19 positive Pt in past 14-21 Days: No - Vaccine Status Have you recieved a Covid-19 vaccination: No - Review of Systems Constitutional: No Symptoms, No Fever, No Chills Eyes: No Symptoms Ears, Nose, & Throat: No Symptoms Respiratory: No Symptoms, No Cough, No Dyspnea Cardiac: No Symptoms, No Chest Pain, No Edema, No Syncope Abdominal/Gastrointestinal: No Symptoms, No Abdominal Pain, No Nausea, No Vomiting, No Diarrhea Genitourinary Symptoms: No Symptoms, No Dysuria Musculoskeletal: No Symptoms, No Back Pain, No Neck Pain Skin: No Symptoms, No Rash Neurological: No Symptoms, No Dizziness, No Focal Weakness, No Sensory Changes Psychological: No Symptoms Endocrine: No Symptoms Hematologic/Lymphatic: No Symptoms Immunological/Allergic: No Symptoms All Other Systems: Reviewed and Negative - Past Medical History Pertinent Past Medical History: Yes Neurological History: Migraines, Peripheral Neuropathy ENT History: No Pertinent History Cardiac History: No Pertinent History Respiratory History: No Pertinent History Endocrine Medical History: No Pertinent History Musculoskeletal History: Degenerative Disk Disease GI Medical History: No Pertinent History History: No Pertinent History Psycho-Social History: Depression, Anxiety Female Reproductive Disorders: Menstrual Problems Other Medical History: HISTORY OF SURGERY ON THE LOW BACK FOR DDD; BIPOLAR, SCHIZOAFFECTIVE DISORDER, MULTIPLE PERSONALITY DISORDER - Past Surgical History Past Surgical History: Yes Neuro Surgical History: No Pertinent History Cardiac: No Pertinent History Respiratory: No Pertinent History Gastrointestinal: Appendectomy, Cholecystectomy Genitourinary: No Pertinent History Musculoskeletal: Orthopedic Surgery Female Surgical History: Hysterectomy, Tubal Ligation, Dilation & Curettage Other Surgical History: back surgery, hysterectomy - Social History Smoking Status: Current every day smoker How long have you smoked: 30 yr Exposure to second hand smoke: Yes Drug Use: none Patient Lives Alone: No - Female History Hx Last Menstrual Period: hysterectomy Hx Now: No - Nursing Vital Signs Nursing Vital Signs: Initial Vital Signs Temperature 97.2 F 10/09/22 09:11 Pulse Rate 72 10/09/22 09:11 Respiratory Rate 24 10/09/22 09:11 Blood Pressure 112/75 10/09/22 09:11 O2 Sat by Pulse Oximetry 98 10/09/22 09:11 Pain Scale Pain Intensity [] 10 Pain Intensity 4 - Physical Exam General Appearance: no apparent distress, alert Eye Exam: PERRL/EOMI, eyes nml inspection Neck Exam: normal inspection, non-tender, supple, full range of motion, No meningismus, No midline tenderness Respiratory Exam: normal breath sounds, lungs clear, No respiratory distress Cardiovascular Exam: regular rate/rhythm, normal heart sounds Gastrointestinal Exam: soft, No tenderness, No mass Extremity Exam: normal inspection, normal range of motion, other (PT DP pulses palpable.), No calf tenderness, No pedal edema Peripheral Pulses: dorsalis-pedis (R): 2+, dorsalis-pedis (L): 2+ Neurologic Exam: alert, oriented x 3, cooperative, human resources benefits coordinator II-XII nml as tested, normal mood/affect, nml station & gait, sensation nml, No motor deficits Skin Exam: normal color, warm, dry, No rash SpO2 Interpretation: normal SpO2: 99 O2 Delivery: Room Air - Course Nursing assessment & vital signs reviewed: Yes - Radiology Exams L-Spine X-ray Interpretation: Teleradiologist Report (Chronic findings) Ordered Tests: Active Orders 24 hr Category Date Time Status LUMBAR COMPLETE (MIN 4 VIEWS) Stat Exams 10/09/22 09:39 Completed UA W/RFX UR CULTURE Stat Lab 10/09/22 10:17 Completed Medication Summary Discontinued Medications Generic Name Dose Route Start Last Admin Trade Name Wu PRN Reason Stop Dose Admin Dexamethasone Sodium Phosphate 10 mg 10/09/22 10:06 10/09/22 10:11 Dexamethasone Sod Phosphate 10 Mg/Ml IM 10/09/22 10:07 10 mg STAT ONE Administration Dexamethasone Sodium Phosphate Confirm 10/09/22 10:10 Dexamethasone Sod Phosphate 10 Mg/Ml Administered 10/09/22 10:11 Dose 10 mg .ROUTE .STK-MED ONE Ketorolac Tromethamine 30 mg 10/09/22 10:05 10/09/22 10:11 Ketorolac Tromethamine 30 Mg/Ml Inj IM 10/09/22 10:06 30 mg STAT ONE Administration Ketorolac Tromethamine Confirm 10/09/22 10:10 Ketorolac Tromethamine 30 Mg/Ml Inj Administered 10/09/22 10:11 Dose 30 mg .ROUTE .STK-MED ONE Lab/Rad Data: Laboratory Results 10/09/22 Range/Units 10:17 Urine Color Yellow (Yellow) Urine Appearance Cloudy A (Clear) Urine pH 5.5 (4.6-8.0) Ur Specific [place] 1.020 (1.005-1.030) Urine Protein Negative (Negative) Urine Glucose (UA) Negative (Negative) mg/dL Urine Ketones Negative (Negative) Urine Blood Small A (Negative) Urine Nitrite Negative (Negative) Urine Bilirubin Negative (Negative) Urine Urobilinogen 0.2 (0.2) mg/dL Ur Leukocyte Esterase Negative (Negative) U Hyaline Cast (Auto) NONE SEEN (0-2) /LPF Urine Microscopic RBC 6-10 A (0-5) /HPF Urine Microscopic WBC 0-2 (0-5) /HPF Ur Epithelial Cells Few (None Seen) /HPF Urine Bacteria None Seen (None Seen) /HPF Urine Culture Reflexed NO (NO) - Progress Progress: improved Progress Note: Patient is a 47-year-old female presents to our ED for evaluation of acute on chronic back pain. No trauma no fever. Present patient awoke with her symptoms. X-ray lumbar spine shows chronic findings. UA negative for UTI however there is a microscopic hematuria observed. Patient received Decadron and Toradol for pain control. Patient reassessed. Pain improved. Will discharge home. Patient voices no other complaints or concerns at this time. Portions of this note were created with voice recognition technology. There may be grammatical, spelling, punctuation or sound alike errors Complexity of problem addressed is moderate No critical care time Complex of data reviewed and analyzed is moderate. Urinalysis and x-ray reviewed. Clinical correlation made between findings. Disposition made accordingly. Risk of complication and or risk of morbidity/mortality patient management is moderate. Patient received IM Decadron and Toradol. A prescription for Toradol forwarded to patient's pharmacy. Patient agrees to follow-up with primary care doctor within 48 hours for reevaluation. Vital stable. Plan of care established for shared decision making. Plan to discharge patient approximately 15 minutes. Patient voices no other complaints or concerns at this time. Portions of this note were created with voice recognition technology. There may be grammatical, spelling, punctuation or sound alike errors 10/09/22 11:36 Counseled pt/family regarding: lab results, diagnosis, need for follow-up - Departure Departure Disposition: Home Clinical Impression: Acute exacerbation of chronic low back pain, Microscopic hematuria, Lumbosacral strain Condition: Stable Critical Care Time: No Referrals: TOM AKINS MD [Primary Care Provider] - Follow up/PCP as directed Additional Instructions: Discharge/Care Plan JEROME FREDERICK was seen on 10/09/22 in the Emergency Room. The patient was counseled regarding Diagnosis,Lab results, Imaging studies, need for follow up and when to return to the Emergency Room. Prescriptions given: Discharge Note I have spoken with the patient and/or caregivers. I have explained the patient's condition, diagnosis and treatment plan based on the information available to me at this time. I have answered the patient's and/or caregiver's questions and addressed any concerns. The patient and/or caregivers have as good understanding of the patient's diagnosis, condition and treatment plan as can be expected at this point. The vital signs have been stable. The patient's condition is stable and appropriate for discharge from the emergency department. The patient will pursue further outpatient evaluation with the primary care physician or other designated or consulting physician as outlined in the discharge instructions. The patient and/or caregivers are agreeable to this plan of care and follow-up instructions have been explained in detail. The patient and/or caregivers have received these instruction. The patient/and or caregivers are aware that any significant change in condition or worsening of symptoms should prompt an immediate return to this or the closest emergency department or call 911. Prescriptions: Ketorolac Trometh 10 mg Tab [TORAdol 10 MG TABLET] 10 mg PO TID 5 Days #15 tablet
--- NOTE | 2022-10-09 10:52 | XRAY ---
CLINICAL HISTORY:pain COMPARISON:None. TECHNIQUE:X-ray lumbar spine standing AP, both oblique, lateral, and spot views.? FINDINGS: Posterior spinal fixators with interpedicular screws and disc cage seen at L4-L5 level, no loosening or break seen. A neurostimulator device is seen. Mild degenerative changes with tiny marginal osteophytes at multiple levels. Reduced intervertebral disc spaces were seen at L4-L5 and L5-S1 levels. Cholecystectomy clips were seen. Normal bone mineralization. A radiographic examination of the lumbar spine demonstrates preserved vertebral height.?? Bilateral sacroiliac joints are maintained.?? The bowel gas pattern is normal. IMPRESSION: 1. Posterior spinal fixators with interpedicular screws and disc cage seen at L4-L5 level, no loosening or break seen. 2. Mild lumbar spondylosis. (Disclaimer: "A subtle bone abnormality or fracture may not be readily apparent on x-rays, thus clinical correlation and further imaging including follow-up CT, MRI, or follow-up x-rays are advised as needed"). Electronically Signed by: Rickey Alonso MD. (10/09/2022 09:51:03 [employer])
[2022-10-09 11:16] VITALS: BP 125/58; PULSE 52; RESP 22; TEMP 97.2
[2022-10-09 11:23] LABS: Appearance Cloudy (Clear); Bacteria None Seen /HPF (None Seen); Bilirubin Negative (Negative); Blood Small (Negative); Epithelial Cells Few /HPF (None Seen); Glucose, Urine Negative (Negative); Hyaline Casts NONE SEEN /LPF (0-2); Ketones Negative (Negative); Leukocyte Esterase Negative (Negative); Nitrite Negative (Negative); Ph 5.5 (4.6-8.0); Protein,Urine Dip Negative (Negative); Urobilinogen 0.2 mg/dL (0.2); WBC 0-2 /HPF (0-5)
[2022-10-09 11:25] LABS: ADD URINE CULTURE? NO (NO)
[2022-10-09 11:41] VITALS: O2SAT 99
== END 2022-10-09 11:51 | disposition home or self-care (01) ==
LOC: ED 09:01
DX: S39.012A Strain of muscle, fascia and tendon of lower back, initial encounter (principal); G89.29 Other chronic pain; R31.29 Other microscopic hematuria; Z28.310 Unvaccinated for COVID-19; Z72.0 Tobacco use
CPT/HCPCS: 72110; 81001; 96372; 99283; J1100; J1885

== ENCOUNTER 2022-12-14 15:37 | Emergency (ER) | payer OTHER ==
--- NOTE | 2022-12-14 15:53 | ERPHSYRPT ---
- History of Present Illness Time Seen by Provider: 12/14/22 15:53 Source: patient Exam Limitations: no limitations Physician History: This is a 47-year-old overweight white female patient of Dr. Akins who has chronic back pain and has had a surgical procedure in the past on L4-L5 with hardware in place and has episodes of acute on chronic low back pain. She does not have any tingling in her feet. She does not have urinary or bowel incontinence. Patient was seen in this emergency department on 10/09/2022 for similar symptoms. In the last month, her pain seems to be intermittently worsening. In the last several days she has had more constant pain in her lower back. Patient continues to smoke cigarettes daily. She has a history of migraine headaches, peripheral neuropathy, degenerative disc disease, depression, anxiety, schizoaffective disorder, multiple personality disorder. Patient has an appointment to see her primary care provider next week. She is unsure if her back surgeon is still working. She states she has not fallen or suffered any acute traumatic injury since her last lumbar spine x-ray. Timing/Duration: worse (In the last several days) Method of Injury: unknown Quality: aching Back Pain Location: lumbar spine Back Pain Radiation: buttocks Severity of Pain-Max: moderate Severity of Pain-Current: moderate Modifying Factors: Improves With: movement Associated Symptoms: nausea, lower back pain, muscle spasms, No urinary incontinence, No loss of bowel control, No constipation, No problems urinating, No numbness in legs/feet, No tingling in legs/feet Previous symptoms: same symptoms as today Allergies/Adverse Reactions: No Known Drug Allergies Allergy (Verified 04/19/21 13:42) Hx Tetanus, Diphtheria Vaccination/Date Given: No Hx Influenza Vaccination/Date Given: No Hx Pneumococcal Vaccination/Date Given: No Travel Risk - International Travel Have you traveled outside of the country in past 3 weeks: No - Coronavirus Screening Are you exhibiting any of the following symptoms?: No Close contact with a COVID-19 positive Pt in past 14-21 Days: No - Vaccine Status Have you recieved a Covid-19 vaccination: No - Review of Systems Constitutional: No Symptoms Eyes: No Symptoms Ears, Nose, & Throat: No Symptoms Respiratory: No Symptoms Cardiac: No Symptoms Abdominal/Gastrointestinal: No Symptoms Genitourinary Symptoms: No Symptoms Musculoskeletal: Back Pain (Lumbar level and to the patient's right) Skin: No Symptoms Neurological: No Symptoms Psychological: No Symptoms Endocrine: No Symptoms Hematologic/Lymphatic: No Symptoms Immunological/Allergic: No Symptoms All Other Systems: Reviewed and Negative - Past Medical History Pertinent Past Medical History: Yes Neurological History: Migraines, Peripheral Neuropathy ENT History: No Pertinent History Cardiac History: No Pertinent History Respiratory History: No Pertinent History Endocrine Medical History: No Pertinent History Musculoskeletal History: Degenerative Disk Disease GI Medical History: No Pertinent History History: No Pertinent History Psycho-Social History: Depression, Anxiety Female Reproductive Disorders: Menstrual Problems Other Medical History: HISTORY OF SURGERY ON THE LOW BACK FOR DDD; BIPOLAR, SCHIZOAFFECTIVE DISORDER, MULTIPLE PERSONALITY DISORDER - Past Surgical History Past Surgical History: Yes Neuro Surgical History: No Pertinent History Cardiac: No Pertinent History Respiratory: No Pertinent History Gastrointestinal: Appendectomy, Cholecystectomy Genitourinary: No Pertinent History Musculoskeletal: Orthopedic Surgery Female Surgical History: Hysterectomy, Tubal Ligation, Dilation & Curettage Other Surgical History: back surgery, hysterectomy - Social History Smoking Status: Current every day smoker How long have you smoked: 30 yr Exposure to second hand smoke: Yes Drug Use: none Patient Lives Alone: No - Nursing Vital Signs Nursing Vital Signs: Initial Vital Signs Temperature 97.1 F 12/14/22 15:48 Pulse Rate 56 L 12/14/22 15:48 Respiratory Rate 20 12/14/22 15:48 Blood Pressure 162/93 12/14/22 15:48 O2 Sat by Pulse Oximetry 99 12/14/22 15:48 Pain Scale Pain Intensity [Lower Back] 8 Pain Intensity 8 - Physical Exam General Appearance: no apparent distress, alert, anxiety, obese Eye Exam: PERRL/EOMI, eyes nml inspection Ears, Nose, Throat Exam: normal ENT inspection, moist mucous membranes Neck Exam: normal inspection, non-tender, supple, full range of motion Respiratory Exam: No chest tenderness, No respiratory distress, No airway intact Gastrointestinal Exam: No tenderness Pelvic Exam: not done Rectal Exam: not done Back Exam: normal inspection, vertebral tenderness (Lumbar level), decreased range of motion, muscle spasm (Right lumbar level paraspinous muscles to palpation) Extremity Exam: normal inspection, normal range of motion, pelvis stable Neurologic Exam: alert, oriented x 3, cooperative, loop tender II-XII nml as tested, normal mood/affect, nml cerebellar function, nml station & gait, sensation nml Skin Exam: normal color, warm, dry Lymphatic Exam: No adenopathy SpO2 Interpretation: normal O2 Delivery: Room Air - Course Nursing assessment & vital signs reviewed: Yes Ordered Tests: Active Orders 24 hr Category Date Time Status LUMBAR SPINE W/O [CT] Stat Exams 12/14/22 16:09 Taken Medication Summary Discontinued Medications Generic Name Dose Route Start Last Admin Trade Name Grantq PRN Reason Stop Dose Admin Methylprednisolone Sodium 0 mg 12/14/22 16:07 12/14/22 16:14 Succinate 125 mg/ Sterile IM 12/14/22 16:08 125 mg Water 2 ml STAT ONE Administration Methylprednisolone Sodium Succinate Confirm 12/14/22 16:12 Methylprednis Sod Succ 125 Mg/2 Ml Vial Administered 12/14/22 16:13 Dose 125 mg .ROUTE .STK-MED ONE Ondansetron HCl 4 mg 12/14/22 16:08 12/14/22 16:13 Zofran 4 Mg/Udtablet Orally Disintegrating PO 12/14/22 16:09 4 mg STAT ONE Administration Ondansetron HCl Confirm 12/14/22 16:11 Zofran 4 Mg/Udtablet Orally Disintegrating Administered 12/14/22 16:12 Dose 4 mg .ROUTE .STK-MED ONE Orphenadrine Citrate 60 mg 12/14/22 16:07 12/14/22 16:14 Orphenadrine Citrate 60 Mg/2 Ml Vial IM 12/14/22 16:08 60 mg STAT ONE Administration Orphenadrine Citrate Confirm 12/14/22 16:12 Orphenadrine Citrate 60 Mg/2 Ml Vial Administered 12/14/22 16:13 Dose 60 mg .ROUTE .STK-MED ONE Oxycodone/Acetaminophen 1 tab 12/14/22 16:06 12/14/22 16:13 Oxycodone Hcl/Apap 5 Mg/325 Mg Tablet PO 12/14/22 16:07 1 tab STAT STA Administration Oxycodone/Acetaminophen Confirm 12/14/22 16:11 Oxycodone Hcl/Apap 5 Mg/325 Mg Tablet Administered 12/14/22 16:12 Dose 1 tab .ROUTE .STK-MED ONE Sterile Water Confirm 12/14/22 16:11 Water For Injection,Sterile 10 Ml Vial Administered 12/14/22 16:12 Dose 10 ml IJ .STK-MED ONE - Progress Progress: improved, pain not gone completely Progress Note: 12/14/22 16:16 This patient's medical issue is 1 of low complexity. Level complex in the work- up performed is based on review the patient's past medical history, review of the patient's medication list, review of patient's drug allergy list, history of present illness and physical findings on examination. The work-up in this patient includes a CT scan of the lumbar spine. We will also provide her with Dilaudid injectable IM, orphenadrine injectable IM, oral Percocet 5/325 and oral Zofran ODT 4 mg. 12/14/22 18:[address] scan of the lumbar spine without contrast was interpreted by the radiologist. There is no new, acute findings regarding the patient's spine. Counseled pt/family regarding: diagnosis, need for follow-up, rad results Medical Desision Making - Independent Historian Additional History obtained from: Spouse - Diagnostic Testing Diagnostic test were ordered, analyzed, and reviewed by me: Yes Radiological Interpretation: Reviewed by me, Teleradiologist Report - Risk of complications The pt has a mod risk of morbidity or mortality based on: Need for prescription drug management - Departure Departure Disposition: Home Clinical Impression: Acute exacerbation of chronic low back pain Condition: Stable Critical Care Time: No Referrals: TOM AKINS MD [Primary Care Provider] - Follow up/PCP as directed Additional Instructions: Take your medication as prescribed. Follow-up with your primary care provider next week at your scheduled appointment date and time Prescriptions: Prednisone 10 mg [Deltasone 10 mg] 10 mg PO TID #12 tablet Orphenadrine Citrate 100 mg [Norflex 100 MG Tablet] 100 mg PO BID #10 tab
[2022-12-14 15:55] VITALS: BP 162/93; PULSE 56; RESP 20; TEMP 97.1; O2SAT 99
[2022-12-14] MEDS ORDERED: PERCOCET TABLET 5/325MG PO STA (16:06)
[2022-12-14] MEDS ORDERED: Norflex 60 MG/2 ML IM ONE (16:07)
[2022-12-14] MEDS ORDERED: solu-MEDROL 125 MG, Sterile H2O 10 ml 2 ML IM ONE ×2 (16:07)
[2022-12-14] MEDS ORDERED: ZOFRAN ODT 4 MG PO ONE (16:08)
[2022-12-14] MEDS ORDERED: PERCOCET TABLET 5/325MG ONE (16:11)
[2022-12-14] MEDS ORDERED: Sterile H2O 10 ml IJ ONE (16:11)
[2022-12-14] MEDS ORDERED: ZOFRAN ODT 4 MG ONE (16:11)
[2022-12-14] MEDS ORDERED: solu-MEDROL ONE (16:12)
[2022-12-14] MEDS ORDERED: Norflex 60 MG/2 ML ONE (16:12)
--- NOTE | 2022-12-14 23:19 | XRAY ---
Indication: Right low back pain 2 months. Multiple contiguous axial images obtained through the lumbar spine. Sagittal and coronal reformatted images obtained. Comparison: April 08, 2021 Again L4-L5 laminectomy and L4-L5 fusion. There is again beam artifact from bilateral posterior fusion hardware, intervertebral spacer, and left paraspinal spinal stimulator device/leads. Stable minimal broad-based L2-L4 disc bulge. Axial images negative for acute fracture, suspicious bone lesions, or spinal canal stenosis. Sagittal and coronal reformatted images again demonstrates normal lumbar alignment. Vertebral body heights/disc spaces maintained. No acute compression fracture or subluxation. Visualized noncontrasted soft tissues again demonstrates nonobstructing left renal punctate calculus. Impression: Stable L4-L5 laminectomy and fusion surgery with hardware beam artifact. Stable L2-L4 broad-based disc bulge. Stable nonobstructing left renal punctate calculus. No new/acute abnormalities.
== END 2022-12-14 18:19 | disposition home or self-care (01) ==
LOC: ED 15:37
DX: G89.29 Other chronic pain (principal); M54.50 Low back pain, unspecified; Z28.310 Unvaccinated for COVID-19; Z72.0 Tobacco use; Z79.52 Long term (current) use of systemic steroids
CPT/HCPCS: 72131; 96372; 99283; J2360; J2930; Q0162; A9270-GY

== ENCOUNTER 2023-05-04 20:32 | Emergency (ER) | payer OTHER ==
[2023-05-04 21:27] VITALS: TEMP 98
--- NOTE | 2023-05-04 21:35 | ERPHSYRPT ---
- History of Present Illness Time Seen by Provider: 05/04/23 21:11 Source: patient Exam Limitations: no limitations Patient Subjective Stated Complaint: pt states that she broke up a dog fight and got bit by the resue she has had the dog for 5 days Triage Nursing Assessment: pt ambulated into the er; pt is axo x4; c/o dog bite; pt states 7/10 pain to left hand; swelling present to dorsal left hand; 4 puncture novak left hand; bruising present to left dorsal hand; strong left radial pulses; skin PDW; no respiratory distress present; hypertensive Physician History: About 11 hours ago pt was breaking up a dog fight and was bit in both hands by a pit bull who looks well and was a [facility] dog with unknown immunization status. Pt c/o pain and swelling of left hand; denies numbness. Allergies/Adverse Reactions: No Known Drug Allergies Allergy (Verified 05/04/23 21:08) Hx Tetanus, Diphtheria Vaccination/Date Given: No Hx Influenza Vaccination/Date Given: No Hx Pneumococcal Vaccination/Date Given: No Travel Risk - International Travel Have you traveled outside of the country in past 3 weeks: No - Coronavirus Screening Are you exhibiting any of the following symptoms?: No Close contact with a COVID-19 positive Pt in past 14-21 Days: No - Vaccine Status Have you recieved a Covid-19 vaccination: No - Review of Systems Respiratory: No Dyspnea Cardiac: No Chest Pain Skin: Other (abrasions to hands today) - Past Medical History Pertinent Past Medical History: Yes Neurological History: Migraines, Peripheral Neuropathy ENT History: No Pertinent History Cardiac History: No Pertinent History Respiratory History: No Pertinent History Endocrine Medical History: No Pertinent History Musculoskeletal History: Degenerative Disk Disease GI Medical History: No Pertinent History History: No Pertinent History Psycho-Social History: Depression, Anxiety Female Reproductive Disorders: Menstrual Problems Other Medical History: HISTORY OF SURGERY ON THE LOW BACK FOR DDD; BIPOLAR, SCHIZOAFFECTIVE DISORDER, MULTIPLE PERSONALITY DISORDER - Past Surgical History Past Surgical History: Yes Neuro Surgical History: No Pertinent History Cardiac: No Pertinent History Respiratory: No Pertinent History Gastrointestinal: Appendectomy, Cholecystectomy Genitourinary: No Pertinent History Musculoskeletal: Orthopedic Surgery Female Surgical History: Hysterectomy, Tubal Ligation, Dilation & Curettage Other Surgical History: back surgery, hysterectomy - Social History Smoking Status: Current every day smoker How long have you smoked: 30 yr Exposure to second hand smoke: Yes Drug Use: none Patient Lives Alone: No - Female History Hx Now: No - Nursing Vital Signs Nursing Vital Signs: Initial Vital Signs Temperature 98 F 05/04/23 21:10 Pulse Rate 58 L 05/04/23 21:10 Respiratory Rate 18 05/04/23 21:10 Blood Pressure 190/97 05/04/23 21:10 O2 Sat by Pulse Oximetry 98 05/04/23 21:10 Pain Scale Pain Intensity 5 - Physical Exam General Appearance: alert Respiratory Exam: lungs clear Cardiovascular Exam: normal heart sounds Extremity Exam: other (right index finger has small abrasion; left hand dorsum has superficial abrasions with mild edema and tenderness; good sensation & capillary refill of all digits of both hands.) Neurologic Exam: alert, cooperative SpO2 Interpretation: normal SpO2: 98 O2 Delivery: Room Air - Course Nursing assessment & vital signs reviewed: Yes - Radiology Exams Left Hand X-ray Interpretation: Interpreted by me, No Fracture Ordered Tests: Active Orders 24 hr Category Date Time Status HAND (MINIMUM 3 VIEWS) Stat Exams 05/04/23 21:36 Taken Medication Summary Discontinued Medications Generic Name Dose Route Start Last Admin Trade Name Freq PRN Reason Stop Dose Admin Hydrocodone Bitart/Acetaminophen 2 tab 05/04/23 21:35 05/04/23 21:49 Hydrocodone/Apap 5/325 1 Tab Tablet PO 05/04/23 21:36 2 tab STAT ONE Administration Hydrocodone Bitart/Acetaminophen Confirm 05/04/23 21:43 Hydrocodone/Apap 5/325 1 Tab Tablet Administered 05/04/23 21:44 Dose 2 tab .ROUTE .STK-MED ONE Amoxicillin/Clavulanate Potassium 875 mg 05/04/23 21:37 05/04/23 21:49 Amox Tr/Potassium Clavulanate 875 Mg Tablet PO 05/04/23 21:38 875 mg STAT ONE Administration Amoxicillin/Clavulanate Potassium Confirm 05/04/23 21:43 Amox Tr/Potassium Clavulanate 875 Mg Tablet Administered 05/04/23 21:44 Dose 875 mg .ROUTE .STK-MED ONE Diphtheria/Tetanus/Acell Pertussis 0.5 ml 05/04/23 21:35 05/04/23 21:49 Tdap --Diph,Pertuss(Acell),Tet Vac/Pf 0.5 Ml Vial IM 05/04/23 21:36 0.5 ml .ONCE ONE Administration Diphtheria/Tetanus/Acell Pertussis Confirm 05/04/23 21:44 Tdap --Diph,Pertuss(Acell),Tet Vac/Pf 0.5 Ml Vial Administered 05/04/23 21:45 Dose 0.5 ml IM .STK-MED ONE - Progress Progress: unchanged Counseled pt/family regarding: diagnosis, need for follow-up, rad results Medical Desision Making - Diagnostic Testing Diagnostic test were ordered, analyzed, and reviewed by me: Yes Radiological Interpretation: Interpreted by me - Departure Departure Disposition: Home Clinical Impression: Dog bite to hands Condition: Stable Critical Care Time: No Referrals: VENANCIO KEBEDE MD [Primary Care Provider] - Follow up/PCP as directed Instructions: Animal Bites (DC) Additional Instructions: Follow up with private doctor tomorrow. Apply neosporin to abrasions twice daily for the next 10 days. Quarantine dog for the next 10 days; if any unusual behavior of dog return to ER. Prescriptions: Amox Tr/Potass Clav. 875 mg [Augmentin 875-125 Tablet] 875 mg PO BID #20 tablet
[2023-05-04] MEDS ORDERED: NORCO 5/325 MG ONE (21:43)
[2023-05-04] MEDS ORDERED: Augmentin 875-125 Tablet ONE (21:43)
[2023-05-04] MEDS ORDERED: Adacel Vial IM ONE (21:44)
[2023-05-04] MEDS: Adacel Vial IM ONE (21:49)
[2023-05-04] MEDS: NORCO 5/325 MG PO ONE (21:49)
[2023-05-04] MEDS: Augmentin 875-125 Tablet PO ONE (21:49)
[2023-05-04 22:59] VITALS: O2SAT 98
[2023-05-04 23:12] VITALS: BP 138/71; PULSE 48; RESP 16
--- NOTE | 2023-05-05 08:35 | XRAY ---
Indication: Dog bite. Comparison: None 3 view left hand demonstrates mild 1st metacarpal multangular degenerative changes and a few tiny 3rd metacarpal head subcortical cysts. No other bony, articular, or soft tissue abnormalities.
== END 2023-05-04 23:13 | disposition home or self-care (01) ==
LOC: ED 20:32
DX: S60.572A Other superficial bite of hand of left hand, initial encounter (principal); S60.571A Other superficial bite of hand of right hand, initial encounter; W54.0XXA Bitten by dog, initial encounter; F17.200 Nicotine dependence, unspecified, uncomplicated
CPT/HCPCS: 73130; 90471; 90715; 99283; A9270-GY

== ENCOUNTER 2023-08-23 16:31 | Emergency (ER) | payer OTHER ==
--- NOTE | 2023-08-23 16:40 | ERPHSYRPT ---
- History of Present Illness Time Seen by Provider: 08/23/23 16:40 Source: patient, family Exam Limitations: no limitations Physician History: This is a 48-year-old white female patient of Dr. Kebede who presents with pain in the lateral aspect of the right eye/globe. It was sudden onset after a rock hit her in this region during mowing. She had regular glasses on. She has not had a change in her vision. However she has noticed redness and tearing and pain. She did rinse out her eye and was able to pull a small piece of rock out of her eye. Patient has multiple medical issues including depression, anxiety, peripheral neuropathy, migraine headache, bipolar disorder, schizoaffective disorder and multiple personality disorder. Timing/Duration: today Location: right eye Severity: mild Apparent Injury: yes (To moderate) Associated Symptoms: pain (Sharpness), burning Visual Assistive Devices: Glasses Chemical Exposure: Yes Trauma: Yes Welding Arc/Tanning Bed Exposure: No Allergies/Adverse Reactions: No Known Drug Allergies Allergy (Verified 05/04/23 21:08) Hx Tetanus, Diphtheria Vaccination/Date Given: No Hx Influenza Vaccination/Date Given: No Hx Pneumococcal Vaccination/Date Given: No - Review of Systems Constitutional: No Symptoms Eyes: Eye Pain (Right side), Eye Redness (Right side), Tearing, Foreign Body Sensation, No Vision Changes, No Double Vision Ears, Nose, & Throat: No Symptoms Respiratory: No Symptoms Cardiac: No Symptoms Abdominal/Gastrointestinal: No Symptoms Genitourinary Symptoms: No Symptoms Musculoskeletal: No Symptoms Skin: No Symptoms Neurological: No Symptoms Psychological: No Symptoms Endocrine: No Symptoms Hematologic/Lymphatic: No Symptoms - Past Medical History Pertinent Past Medical History: Yes Neurological History: Migraines, Peripheral Neuropathy ENT History: No Pertinent History Cardiac History: No Pertinent History Respiratory History: No Pertinent History Endocrine Medical History: No Pertinent History Musculoskeletal History: Degenerative Disk Disease GI Medical History: No Pertinent History History: No Pertinent History Psycho-Social History: Depression, Anxiety Female Reproductive Disorders: Menstrual Problems Other Medical History: HISTORY OF SURGERY ON THE LOW BACK FOR DDD; BIPOLAR, SCHIZOAFFECTIVE DISORDER, MULTIPLE PERSONALITY DISORDER - Past Surgical History Past Surgical History: Yes Neuro Surgical History: No Pertinent History Cardiac: No Pertinent History Respiratory: No Pertinent History Gastrointestinal: Appendectomy, Cholecystectomy Genitourinary: No Pertinent History Musculoskeletal: Orthopedic Surgery Female Surgical History: Hysterectomy, Tubal Ligation, Dilation & Curettage Other Surgical History: back surgery, hysterectomy - Female History Hx Last Menstrual Period: now - Social History Smoking Status: Current every day smoker How long have you smoked: 30 yr Exposure to second hand smoke: Yes Drug Use: none Patient Lives Alone: No - Nursing Vital Signs Nursing Vital Signs: Initial Vital Signs Temperature 97.8 F 08/23/23 16:42 Pulse Rate 88 08/23/23 16:42 Respiratory Rate 18 08/23/23 16:42 Blood Pressure 132/99 08/23/23 16:42 O2 Sat by Pulse Oximetry 98 08/23/23 16:42 Pain Scale Pain Intensity 6 - Physical Exam General Appearance: no apparent distress, alert, anxiety Eye Exam: right eye: PERRL, EOMI, conjunctival inflammation, corneal abrasion (Horizontally oriented, grossly evident corneal abrasion), left eye: normal inspection Ears, Nose, Throat Exam: normal ENT inspection, moist mucous membranes Neck Exam: normal inspection, non-tender, supple, full range of motion Respiratory Exam: airway intact, No chest tenderness, No respiratory distress Gastrointestinal Exam: No tenderness Extremity Exam: normal inspection, normal range of motion, pelvis stable Neurologic: alert, oriented x 3, cooperative, blood donor recruiter II-XII nml as tested, nml cerebellar function, nml station & gait, sensation nml Skin Exam: normal color, warm, dry Lymphatic: No adenopathy SpO2 Interpretation: normal O2 Delivery: Room Air Ordered Tests: Active Orders 24 hr Category Date Time Status Eye Patch Application STAT Care 08/23/23 17:35 Active Medication Summary Discontinued Medications Generic Name Dose Route Start Last Admin Trade Name Wu PRN Reason Stop Dose Admin Hydrocodone Bitart/Acetaminophen 1 tab 08/23/23 17:37 Hydrocodone/Apap 5/325 1 Tab Tablet PO 08/23/23 17:38 STAT ONE Erythromycin 1 gm 08/23/23 17:35 Erythromycin Base 1 Gm Tube Eye Ointment OP 08/23/23 17:36 STAT STA Eye Irrigation Solution Confirm 08/23/23 16:50 Sodium/Potassium/Carlos/Magnesium 30 Ml Eye Wash Administered 08/23/23 16:51 Dose 30 ml .ROUTE .STK-MED ONE Eye Irrigation Solution 15 ml 08/23/23 16:55 08/23/23 16:57 Sodium/Potassium/Carlos/Magnesium 30 Ml Eye Wash OP 08/23/23 16:56 15 ml STAT ONE Administration Fluorescein Sodium Confirm 08/23/23 16:49 Fluorescein Sodium 1 Mg/Strip Strip Administered 08/23/23 16:50 Dose 1 mg OP .STK-MED ONE Fluorescein Sodium 1 mg 08/23/23 16:55 08/23/23 16:57 Fluorescein Sodium 1 Mg/Strip Strip OP 08/23/23 16:56 1 mg STAT ONE Administration Prednisone 20 mg 08/23/23 17:38 Prednisone 20 Mg Tablet PO 08/23/23 17:39 STAT ONE Tetracaine HCl Confirm 08/23/23 16:49 Tetracaine Hcl/Pf 4 Ml Bottle Administered 08/23/23 16:50 Dose 4 ml OP .STK-MED ONE Tetracaine HCl 4 ml 08/23/23 16:55 08/23/23 16:57 Tetracaine Hcl/Pf 4 Ml Bottle OP 08/23/23 16:56 4 ml STAT STA Administration - Progress Progress: improved, pain not gone completely, re-examined Progress Note: 08/23/23 17:52 My medical decision making and the assignment of low complexity to this patient's medical issue today is based on review of the patient's past medical history, review of the patient's medication list, review the patient drug allergy list, history present illness and physical findings on examination. No laboratory radiographic studies are necessary in this patient. I am having the nursing staff obtain Roger-Pen of both eyes at this time. The patient has an obvious right lateral corneal abrasion. Patient will be rinsing out her eye after each topical application of erythromycin ophthalmologic ointment. We will also provide her with prednisone and hydrocodone 5/325 here in the emergency department. We will have the patient return tomorrow for reassessment. Patient will then be referred to optometry/ophthalmology on Saturday if tomorrow's appointment clears her to be seen on 08/26/2023. Otherwise, patient might be referred earlier depending on tomorrow's examination and follow-up. The patient's Roger-Pen intraocular pressure on the right side is 17. This is normal pressure. The left side pressure is measured at Counseled pt/family regarding: diagnosis, need for follow-up Medical Desision Making - Independent Historian Additional History obtained from: Spouse - Diagnostic Testing Diagnostic test were ordered, analyzed, and reviewed by me: Yes - Risk of complications The pt has a mod risk of morbidity or mortality based on: Need for prescription drug management - Departure Departure Disposition: Home Clinical Impression: Corneal abrasion, right Condition: Stable Critical Care Time: No Referrals: VENANCIO KEBEDE MD [Primary Care Provider] - Follow up/PCP as directed Additional Instructions: Irrigate out right eye with refresh/artificial tears before each application of antibiotic ointment. Take your other medications as prescribed. Return to our emergency department tomorrow as discussed for reassessment/reevaluation. Prescriptions: Hydrocodone/APAP 5/325 [[place] 5/325 mg] 1 each PO Q6H PRN PRN #10 tablet MDD 4 PRN Reason: Pain Prednisone 10 mg [Deltasone 10 mg] 10 mg PO TID #12 tablet Erythromycin Base 3.5 gm [Erythromycin 3.5 GM OPHTH.] 3.5 gm OP QID #1 unit
[2023-08-23 16:46] VITALS: RESP 18; TEMP 97.8
[2023-08-23] MEDS ORDERED: Fluor-I-Strip/Ful-Flo OP ONE (16:49)
[2023-08-23] MEDS ORDERED: TETRACAINE 0.5% STERI-UNIT SOL OP ONE (16:49)
[2023-08-23] MEDS ORDERED: Eye-Stream Solution ONE (16:50)
[2023-08-23] MEDS: Eye-Stream Solution OP ONE (16:57)
[2023-08-23] MEDS: Fluor-I-Strip/Ful-Flo OP ONE (16:57)
[2023-08-23] MEDS: TETRACAINE 0.5% STERI-UNIT SOL OP STA (16:57)
[2023-08-23 17:55] VITALS: BP 103/66; PULSE 71; O2SAT 97
[2023-08-23] MEDS ORDERED: Erythromycin 1 GM ONE (17:56)
[2023-08-23] MEDS ORDERED: DELTASONE 20 MG ONE (17:56)
[2023-08-23] MEDS ORDERED: NORCO 5/325 MG ONE (17:56)
[2023-08-23] MEDS: NORCO 5/325 MG PO ONE (18:00)
[2023-08-23] MEDS: DELTASONE 20 MG PO ONE (18:01)
[2023-08-23] MEDS: Erythromycin 1 GM OP STA (18:02)
== END 2023-08-23 18:18 | disposition home or self-care (01) ==
LOC: ED 16:31
DX: S05.01XA Injury of conjunctiva and corneal abrasion without foreign body, right eye, initial encounter (principal); H57.11 Ocular pain, right eye
CPT/HCPCS: 99283; A9270-GY

== ENCOUNTER 2024-01-02 21:45 | Emergency (ER) | payer OTHER ==
[2024-01-02 22:59] VITALS: RESP 20; TEMP 96.9
[2024-01-02] MEDS ORDERED: TORAdol 30 mg Injection ONE ×3 (23:04→23:09)
[2024-01-02] MEDS ORDERED: DECADRON 10MG INJ. ONE ×2 (23:04→23:09)
[2024-01-02] MEDS: DECADRON 10MG INJ. IM ONE (23:09)
[2024-01-02] MEDS: TORAdol 30 mg Injection IM ONE (23:11)
[2024-01-02 23:19] VITALS: O2SAT 97
[2024-01-02 23:24] LABS: Appearance Clear (Clear); Bacteria Rare /HPF (None Seen); Bilirubin Negative (Negative); Blood Moderate (Negative); Epithelial Cells Rare /HPF (None Seen); Glucose, Urine Negative (Negative); Hyaline Casts NONE SEEN /LPF (0-2); Ketones Negative (Negative); Leukocyte Esterase Negative (Negative); Nitrite Negative (Negative); Ph 5.5 (4.6-8.0); Protein,Urine Dip Negative (Negative); Urobilinogen 0.2 mg/dL (0.2); WBC 0-2 /HPF (0-5)
--- NOTE | 2024-01-02 23:47 | ERPHSYRPT ---
- History of Present Illness Time Seen by Provider: 01/02/24 23:43 Source: patient Exam Limitations: no limitations Patient Subjective Stated Complaint: pt states that she woke up with a sharp pain to her rt leg. pt states that she can hardly put weight on it due to the pa in Triage Nursing Assessment: pt came into the er via wheelchair; pt transfer to cot per self; pt is axo x4; c/o rt leg pain; pt states 9/10 pain to RLE; pt denies fall or injury to RLE; no deformity, shortening or rotation to RLE; strong rt pedal pulse; decreased ROM to RLE due to pain; skin PDW; no respiratory distress present; hypertensive Physician History: 48-year-old female history of chronic back pain, back fusion left-sided sciatica presents to our ED for evaluation of back pain radiating to her right thigh. Symptoms consistent with her previous contralateral sciatica. No trauma no fever. No saddle anesthesia. No change in bowel bladder function. Patient states she awoke with her back pain. No recent back procedures. Pain described as an ache. Pain radiates to the right thigh. Pain worse with movement and weightbearing. Pain improves with rest. Patient otherwise feels well. She voices no other complaints or concerns at this time. Portions of this note were created with voice recognition technology. There may be grammatical, spelling, punctuation or sound alike errors Timing/Duration: today Severity: moderate Modifying Factors: Improves With: nothing Associated Symptoms: denies symptoms Allergies/Adverse Reactions: No Known Drug Allergies Allergy (Verified 01/02/24 22:44) Hx Tetanus, Diphtheria Vaccination/Date Given: Yes Hx Influenza Vaccination/Date Given: No Hx Pneumococcal Vaccination/Date Given: No Travel Risk - International Travel Have you traveled outside of the country in past 3 weeks: No - Emerging Infectious Disease Are you exhibiting symptoms associated with any current EIDs: No - Review of Systems Constitutional: No Symptoms, No Fever, No Chills Eyes: No Symptoms Ears, Nose, & Throat: No Symptoms Respiratory: No Symptoms, No Cough, No Dyspnea Cardiac: No Symptoms, No Chest Pain, No Edema, No Syncope Abdominal/Gastrointestinal: No Symptoms, No Abdominal Pain, No Nausea, No Vomiting, No Diarrhea Genitourinary Symptoms: No Symptoms, No Dysuria Musculoskeletal: No Symptoms, No Back Pain, No Neck Pain Skin: No Symptoms, No Rash Neurological: No Symptoms, No Dizziness, No Focal Weakness, No Sensory Changes Psychological: No Symptoms Endocrine: No Symptoms Hematologic/Lymphatic: No Symptoms Immunological/Allergic: No Symptoms All Other Systems: Reviewed and Negative - Past Medical History Pertinent Past Medical History: Yes Neurological History: Migraines, Peripheral Neuropathy ENT History: No Pertinent History Cardiac History: No Pertinent History Respiratory History: No Pertinent History Endocrine Medical History: No Pertinent History Musculoskeletal History: Degenerative Disk Disease GI Medical History: No Pertinent History History: No Pertinent History Psycho-Social History: Depression, Anxiety Female Reproductive Disorders: Menstrual Problems Other Medical History: HISTORY OF SURGERY ON THE LOW BACK FOR DDD; BIPOLAR, SCHIZOAFFECTIVE DISORDER, MULTIPLE PERSONALITY DISORDER - Past Surgical History Past Surgical History: Yes Neuro Surgical History: No Pertinent History Cardiac: No Pertinent History Respiratory: No Pertinent History Gastrointestinal: Appendectomy, Cholecystectomy Genitourinary: No Pertinent History Musculoskeletal: Orthopedic Surgery Female Surgical History: Hysterectomy, Tubal Ligation, Dilation & Curettage Other Surgical History: back surgery, hysterectomy - Female History Hx Last Menstrual Period: hysterectomy Hx Now: No - Social History Smoking Status: Current every day smoker How long have you smoked: 30 yr Exposure to second hand smoke: Yes Drug Use: none Patient Lives Alone: No - Social Determinants of Health Will the patient participate in the screening: Declined to provide - Nursing Vital Signs Nursing Vital Signs: Initial Vital Signs Temperature 96.9 F 01/02/24 22:45 Pulse Rate 69 01/02/24 22:45 Respiratory Rate 20 01/02/24 22:45 Blood Pressure 149/70 01/02/24 22:45 O2 Sat by Pulse Oximetry 98 01/02/24 22:45 Pain Scale Pain Intensity 9 - Physical Exam General Appearance: no apparent distress, alert Eye Exam: PERRL/EOMI, eyes nml inspection Ears, Nose, Throat Exam: normal ENT inspection, TMs normal, pharynx normal, moist mucous membranes Neck Exam: normal inspection, non-tender, supple, full range of motion Respiratory Exam: normal breath sounds, lungs clear, airway intact, No respiratory distress Cardiovascular Exam: regular rate/rhythm, normal heart sounds, normal peripheral pulses Gastrointestinal/Abdomen Exam: soft, normal bowel sounds, No tenderness, No mass Back Exam: normal inspection, normal range of motion, No CVA tenderness, No vertebral tenderness Extremity Exam: normal inspection, normal range of motion, pelvis stable, other (Positive straight leg raise right lower extremity bilateral lower extremity otherwise neurovascular intact distally compartments are soft cap refill less than 2 seconds.) Neurologic Exam: alert, oriented x 3, cooperative, normal mood/affect, sensation nml, No motor deficits Skin Exam: normal color, warm, dry, No rash Lymphatic Exam: No adenopathy SpO2 Interpretation: normal SpO2: 97 O2 Delivery: Room Air - Course Nursing assessment & vital signs reviewed: Yes Ordered Tests: Active Orders 24 hr Category Date Time Status UA W/RFX UR CULTURE Stat Lab 01/02/24 23:13 Completed Medication Summary Discontinued Medications Generic Name Dose Route Start Last Admin Trade Name Grantq PRN Reason Stop Dose Admin Dexamethasone Sodium Phosphate 10 mg 01/02/24 23:00 01/02/24 23:09 Dexamethasone Sod Phosphate 10 Mg/Ml IM 01/02/24 23:01 10 mg STAT ONE Administration Dexamethasone Sodium Phosphate Confirm 01/02/24 23:04 Dexamethasone Sod Phosphate 10 Mg/Ml Administered 01/02/24 23:05 Dose 10 mg .ROUTE .STK-MED ONE Dexamethasone Sodium Phosphate Confirm 01/02/24 23:09 Dexamethasone Sod Phosphate 10 Mg/Ml Administered 01/02/24 23:10 Dose 10 mg .ROUTE .STK-MED ONE Ketorolac Tromethamine 60 mg 01/02/24 22:59 01/02/24 23:11 Ketorolac Tromethamine 30 Mg/Ml Inj IM 01/02/24 23:00 60 mg STAT ONE Administration Ketorolac Tromethamine Confirm 01/02/24 23:04 Ketorolac Tromethamine 30 Mg/Ml Inj Administered 01/02/24 23:05 Dose 30 mg .ROUTE .STK-MED ONE Ketorolac Tromethamine Confirm 01/02/24 23:05 Ketorolac Tromethamine 30 Mg/Ml Inj Administered 01/02/24 23:06 Dose 30 mg .ROUTE .STK-MED ONE Ketorolac Tromethamine Confirm 01/02/24 23:09 Ketorolac Tromethamine 30 Mg/Ml Inj Administered 01/02/24 23:10 Dose 30 mg .ROUTE .STK-MED ONE Lab/Rad Data: Laboratory Results 01/02/24 Range/Units 23:13 Urine Color Yellow (Yellow) Urine Appearance Clear (Clear) Urine pH 5.5 (4.6-8.0) Ur Specific [place] 1.020 (1.005-1.030) Urine Protein Negative (Negative) Urine Glucose (UA) Negative (Negative) mg/dL Urine Ketones Negative (Negative) Urine Blood Moderate A (Negative) Urine Nitrite Negative (Negative) Urine Bilirubin Negative (Negative) Urine Urobilinogen 0.2 (0.2) mg/dL Ur Leukocyte Esterase Negative (Negative) U Hyaline Cast (Auto) NONE SEEN (0-2) /LPF Urine Microscopic RBC 6-10 A (0-5) /HPF Urine Microscopic WBC 0-2 (0-5) /HPF Ur Epithelial Cells Rare (None Seen) /HPF Urine Bacteria Rare A (None Seen) /HPF Urine Culture Reflexed NO (NO) - Progress Progress: improved Progress Note: 48-year-old female presents to our ED for evaluation of back pain radiating down into her right thigh. Physical exam is consistent with sciatica. No trauma. No change in bowel bladder function. No fever no recent back procedure. No saddle anesthesia. No indication for imaging studies at this time. Urinalysis reveals moderate hematuria no urinary tract infection. Patient advised to follow-up with her primary care doctor regarding the hematuria. Patient's pain improved. Improvement likely secondary to administration of Toradol. Patient also received Decadron however Decadron will take a little longer to work. Patient states he is ready for discharge. Patient agrees to follow-up with her primary care doctor within 48 hours for reevaluation. She voices no other complaints or concerns at this time. Portions of this note were created with voice recognition technology. There may be grammatical, spelling, punctuation or sound alike errors Complexity of problem addressed is moderate acute complicated no critical care t apple. Complex of data reviewed and analyzed is moderate. Test ordered chest reviewed results analyzed and correlated clinically with history and physical exam. Risk of complication and or risk of morbidity/mortality of patient management is moderate. A prescription for Toradol forwarded to patient's pharmacy. Vital stable. Time spent to discharge patient approximately 10 minutes. Plan of care established for shared decision making. No social determinants of health present to impede follow-up. Portions of this note were created with voice recognition technology. There may be grammatical, spelling, punctuation or sound alike errors 01/02/24 23:51 01/02/24 23:51 Counseled pt/family regarding: lab results, diagnosis, need for follow-up - Departure Departure Disposition: Home Clinical Impression: Lumbosacral strain, Sciatica, Hematuria Condition: Stable Critical Care Time: No Referrals: VENANCIO KEBEDE MD [Primary Care Provider] - Follow up/PCP as directed Additional Instructions: Discharge/Care Plan JEROME FREDERICK was seen on 01/02/24 in the Emergency Room. The patient was counseled regarding Diagnosis,Lab results, Imaging studies, need for follow up and when to return to the Emergency Room. Prescriptions given: Discharge Note I have spoken with the patient and/or caregivers. I have explained the patient's condition, diagnosis and treatment plan based on the information available to me at this time. I have answered the patient's and/or caregiver's questions and addressed any concerns. The patient and/or caregivers have as good understanding of the patient's diagnosis, condition and treatment plan as can be expected at this point. The vital signs have been stable. The patient's condition is stable and appropriate for discharge from the emergency department. The patient will pursue further outpatient evaluation with the primary care physician or other designated or consulting physician as outlined in the discharge instructions. The patient and/or caregivers are agreeable to this plan of care and follow-up instructions have been explained in detail. The patient and/or caregivers have received these instruction. The patient/and or caregivers are aware that any significant change in condition or worsening of symptoms should prompt an immediate return to this or the closest emergency department or call 911. Prescriptions: Ketorolac Trometh 10 mg Tab [TORAdol 10 MG TABLET] 10 mg PO TID 5 Days #15 tablet
[2024-01-02 23:54] VITALS: BP 126/61; PULSE 63
== END 2024-01-02 23:56 | disposition home or self-care (01) ==
LOC: ED 21:45
DX: S39.012A Strain of muscle, fascia and tendon of lower back, initial encounter (principal); M54.40 Lumbago with sciatica, unspecified side; R31.9 Hematuria, unspecified
CPT/HCPCS: 81001; 96372; 99283; J1100; J1885